=== PATIENT | female | born 1990 | race Caucasian/White ===

== ENCOUNTER 2016-08-18 12:36 | Emergency (ER) | payer OTHER ==
--- NOTE | 2016-08-18 13:36 | EDDOCDS ---
Nurse's Notes [facility] Name: Beverly Roque Age: 26 yrs Sex: Female : 1990 Arrival Date: 08/18/2016 Time: 12:36 Bed Triage 2 Private MD: Efren Strange W Diagnosis: Acute nasopharyngitis [common cold] Presentation: 08/18 12:40 Presenting complaint: Patient states: Runny Nose, nasal congestion, headache, abdominal ck1 pain, sore throat since this morning. Adult Sepsis Screening: The patient does not have new or worsening altered mentation. Patient's respiratory rate is less than 22. Systolic blood pressure is greater than 100. Patient has a qSOFA score of 0- Negative Sepsis Screen. Suicide/Homicide risk assessment- the patient denies having any suicidal and/or homicidal ideations and does not present with any other emotional, behavioral or mental health complaints. 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 Transition of care: patient was not received from another setting of care. 12:40 Acuity: JOSE Level 4 ck1 12:40 Method Of Arrival: Walkin/Carried/Asstd ck1 Triage Assessment: 12:41 General: Appears in no apparent distress, comfortable, Behavior is appropriate for age, ck1 cooperative. Pain: Location: generalized Pain currently is 5 out of 10 on a pain scale. HIV screening NA for this visit Offered previously. Neurological: No deficits noted. Respiratory: Respiratory effort is even, unlabored, Respiratory pattern is regular, symmetrical. GI: No deficits noted. Derm: Skin is pink, warm & dry. 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 none - PMHx: none; - PSHx: none; - Social history: Smoking status: Patient uses tobacco products, heavy tobacco smoker. No barriers to communication noted, The patient speaks fluent Malian, Speaks appropriately for age. - Family history: Not pertinent. - : The pt / caregiver states he / she is not on anticoagulants. Home medication list is obtained from the patient. - Exposure Risk Screening:: None identified. Screenin:34 Screening information is obtained from the patient. Fall risk: No risks identified. mlb1 Assistance ADL's: requires no assistance with activities of daily living. Abuse/DV Screen: The patient / caregiver reports he/she is: not in a situation that causes fear, pain or injury. Nutritional screening: No deficits noted. Advance Directives: Currently, there is no health care proxy. home support is adequate. Assessment: 13:33 General: Appears in no apparent distress, comfortable, Behavior is appropriate for age, mlb1 cooperative. Pain: Denies pain. EENT: Reports nasal congestion. Derm: No deficits noted. Vital Signs: 12:39 BP 120 / 66; Pulse 73; Resp 16; Temp 96.7; Pulse Ox 100% ; Weight 63.5 kg; Height 5 ft. elp 6 in. (167.64 cm); Pain 5/10; 12:39 Body Mass Index 22.60 (63.50 kg, 167.64 cm) elp Vitals: 12:39 Log In Time: August 18, 2016 at 12:36. elp ED Course: 12:38 Patient visited by Cas Boggs RN. mlb1 12:38 Efren Strange is Private Physician. mlb1 12:38 Patient moved to Waiting mlb1 12:39 Patient visited by Marissa Almaguer PCA. elp 12:39 Patient moved to Pre RCE elp 12:41 Triage Initiated ck1 12:58 Patient moved to Triage 2 mlb1 13:17 [facility] cc[facility] 13:17 Patric Barnett MD is Attending Physician. cc10 13:26 Patient visited by Juarez Qureshi PA-C. cc10 13:26 Patient visited by Juarez Qureshi PA-C. cc10 13:29 Efren Strange is Referral Physician. cc10 13:34 No IV's were initiated during this patient's visit. No procedures done that require mlb1 assistance. 13:35 The patient / caregiver is instructed regarding the plan of care and ED course. mlb1 Order Results: There are currently no results for this order. Outcome: 13:30 Discharge ordered by Provider. cc10 13:34 Discharge Assessment: Patient awake, alert and oriented x 3. No cognitive and/or mlb1 functional deficits noted. Patient verbalized understanding of disposition instructions. patient administered narcotics - no. The following High Risk Discharge criteria are identified: None. Discharged to home ambulatory. Condition: good. Discharge instructions given to patient, Instructed on discharge instructions, follow up and referral plans. medication usage, Demonstrated understanding of instructions, medications, Pt was receptive of discharge instructions/ teaching. Prescriptions given X 2. No special radiology studies were completed. Property sent home with patient. 13:35 Patient left the ED. mlb1 Signatures: Cas Boggs RN RN mlb1 Mel NorrisRN RN ck1 Marissa Almaguer, ALEXIS REAL ESTATE LOAN OFFICER jayrop Juarez Qureshi, PA-C PA-C cc10 MTDD
--- NOTE | 2016-08-18 13:36 | EDDOCDS ---
Physician Documentation [facility] Name: Beverly Roque Age: 26 yrs Sex: Female : 1990 Arrival Date: 08/18/2016 Time: 12:36 Bed Triage 2 Private MD: Efren Strange W Disposition: 08/18/16 13:30 Discharged to Home/Self Care. Impression: Acute nasopharyngitis [common cold]. - Condition is Stable. - Discharge Instructions: Upper Respiratory Infection, Adult. - Prescriptions for Guaifenesin- DM 10-100 mg/5 mL Oral Liquid - take 5 milliliter by ORAL route every 4 hours As needed; 100 milliliter. benzonatate 200 mg Oral Capsule - take 1 capsule by ORAL route 3 times per day As needed; 30 capsule. - Medication Reconciliation, Work Release Form - 2 day, Local Pharmacy Hours form. - Follow up: Emergency Department; When: As needed. Follow up: Efren Strange; When: Call to arrange an appointment; Reason: Wound/Symptom Recheck, Recheck today's complaints, Worsening of conditions, Continuance of care. - Problem is new. - Symptoms are unchanged. Historical: - Allergies: No known drug Allergies; - Home Meds: 1. none - PMHx: none; - PSHx: none; - Social history: Smoking status: Patient uses tobacco products, heavy tobacco smoker. No barriers to communication noted, The patient speaks fluent Czech, Speaks appropriately for age. - Family history: Not pertinent. - : The pt / caregiver states he / she is not on anticoagulants. Home medication list is obtained from the patient. - Exposure Risk Screening:: None identified. 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 6 in. (167.64 cm); Pain 5/10; 12:39 Body Mass Index 22.60 (63.50 kg, 167.64 cm) elp Signatures: Cas Boggs RN RN mlb1 Mel Norris RN RN ck1 Juarez Qureshi PA-C PA-C cc10 MTDD
--- NOTE | 2016-08-20 14:36 | EDDOCDS ---
Nurse's Notes [facility] Name: Beverly Roque Age: 26 yrs Sex: Female : 1990 Arrival Date: 08/18/2016 Time: 12:36 Bed Triage 2 Private MD: Efren Strange W Diagnosis: Acute nasopharyngitis [common cold] Presentation: 08/18 12:40 Presenting complaint: Patient states: Runny Nose, nasal congestion, headache, abdominal ck1 pain, sore throat since this morning. Adult Sepsis Screening: The patient does not have new or worsening altered mentation. Patient's respiratory rate is less than 22. Systolic blood pressure is greater than 100. Patient has a qSOFA score of 0- Negative Sepsis Screen. Suicide/Homicide risk assessment- the patient denies having any suicidal and/or homicidal ideations and does not present with any other emotional, behavioral or mental health complaints. 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 Transition of care: patient was not received from another setting of care. 12:40 Acuity: JOSE Level 4 ck1 12:40 Method Of Arrival: Walkin/Carried/Asstd ck1 Triage Assessment: 12:41 General: Appears in no apparent distress, comfortable, Behavior is appropriate for age, ck1 cooperative. Pain: Location: generalized Pain currently is 5 out of 10 on a pain scale. HIV screening NA for this visit Offered previously. Neurological: No deficits noted. Respiratory: Respiratory effort is even, unlabored, Respiratory pattern is regular, symmetrical. GI: No deficits noted. Derm: Skin is pink, warm & dry. 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 none - PMHx: none; - PSHx: none; - Social history: Smoking status: Patient uses tobacco products, heavy tobacco smoker. No barriers to communication noted, The patient speaks fluent Austrian, Speaks appropriately for age. - Family history: Not pertinent. - : The pt / caregiver states he / she is not on anticoagulants. Home medication list is obtained from the patient. - Exposure Risk Screening:: None identified. Screenin:34 Screening information is obtained from the patient. Fall risk: No risks identified. mlb1 Assistance ADL's: requires no assistance with activities of daily living. Abuse/DV Screen: The patient / caregiver reports he/she is: not in a situation that causes fear, pain or injury. Nutritional screening: No deficits noted. Advance Directives: Currently, there is no health care proxy. home support is adequate. Assessment: 13:33 General: Appears in no apparent distress, comfortable, Behavior is appropriate for age, mlb1 cooperative. Pain: Denies pain. EENT: Reports nasal congestion. Derm: No deficits noted. 13:48 General: medicaid transportation called per patient request. [facility] Vital Signs: 12:39 BP 120 / 66; Pulse 73; Resp 16; Temp 96.7; Pulse Ox 100% ; Weight 63.5 kg; Height 5 ft. elp 6 in. (167.64 cm); Pain 5/10; 12:39 Body Mass Index 22.60 (63.50 kg, 167.64 cm) [facility] Vitals: 12:39 Log In Time: August 18, 2016 at 12:36. elp ED Course: 12:38 Patient visited by Cas Boggs RN. mlb1 12:38 Efren Strange is Private Physician. mlb1 12:38 Patient moved to Waiting mlb1 12:39 Patient visited by Marissa Almaguer PCA. elp 12:39 Patient moved to Pre RCE elp 12:41 Triage Initiated ck1 12:58 Patient moved to Triage 2 mlb1 13:17 Juarez Qureshi [facility]C [facility] cc[facility] 13:17 Patric Barnett MD is Attending Physician. cc10 13:26 Patient visited by Juarez Qureshi PA-C. cc10 13:26 Patient visited by Juarez Qureshi PA-C. cc10 13:29 Efren Strange is Referral Physician. cc10 13:34 No IV's were initiated during this patient's visit. No procedures done that require mlb1 assistance. 13:35 The patient / caregiver is instructed regarding the plan of care and ED course. mlb1 15:18 T-Sheet-- Draft Copy was scanned into [employer] and attached to record. gb 15:36 Patient name changed from Beverly\S\Taylor\S\Roque\S\ to Beverly\S\M\S\Roque. EDMS 15:36 [facility] Payment Agreement was scanned into [employer] and attached to record. lg Order Results: There are currently no results for this order. Outcome: 13:30 Discharge ordered by Provider. cc10 13:34 Discharge Assessment: Patient awake, alert and oriented x 3. No cognitive and/or mlb1 functional deficits noted. Patient verbalized understanding of disposition instructions. patient administered narcotics - no. The following High Risk Discharge criteria are identified: None. Discharged to home ambulatory. Condition: good. Discharge instructions given to patient, Instructed on discharge instructions, follow up and referral plans. medication usage, Demonstrated understanding of instructions, medications, Pt was receptive of discharge instructions/ teaching. Prescriptions given X 2. No special radiology studies were completed. Property sent home with patient. 13:35 Patient left the ED. mlb1 Signatures: Dispatcher [employer] EDMS Cat Mcclellan, Reg Reg gb Marek Cagle, Reg Reg lg Ambrose, Cas Fall RN RN mlb1 Mel NorrisRN RN ck1 Nurys Andrews,RN RN [facility] Marissa Almaguer, ALEXIS BINITROTOLUENE OPERATOR Juarez Lomas, PA-C PA-C cc10 Chart Complete MTDD
--- NOTE | 2016-08-20 14:36 | EDDOCDS ---
Physician Documentation [facility] Name: Beverly Roque Age: 26 yrs Sex: Female : 1990 Arrival Date: 08/18/2016 Time: 12:36 Bed Triage 2 Private MD: Efren Strange W Disposition: 08/18/16 13:30 Discharged to Home/Self Care. Impression: Acute nasopharyngitis [common cold]. - Condition is Stable. - Discharge Instructions: Upper Respiratory Infection, Adult. - Prescriptions for Guaifenesin- DM 10-100 mg/5 mL Oral Liquid - take 5 milliliter by ORAL route every 4 hours As needed; 100 milliliter. benzonatate 200 mg Oral Capsule - take 1 capsule by ORAL route 3 times per day As needed; 30 capsule. - Medication Reconciliation, Work Release Form - 2 day, Local Pharmacy Hours form. - Follow up: Emergency Department; When: As needed. Follow up: Efren Strange; When: Call to arrange an appointment; Reason: Wound/Symptom Recheck, Recheck today's complaints, Worsening of conditions, Continuance of care. - Problem is new. - Symptoms are unchanged. Historical: - Allergies: No known drug Allergies; - Home Meds: 1. none - PMHx: none; - PSHx: none; - Social history: Smoking status: Patient uses tobacco products, heavy tobacco smoker. No barriers to communication noted, The patient speaks fluent Sami, Speaks appropriately for age. - Family history: Not pertinent. - : The pt / caregiver states he / she is not on anticoagulants. Home medication list is obtained from the patient. - Exposure Risk Screening:: None identified. 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 6 in. (167.64 cm); Pain 5/10; 12:39 Body Mass Index 22.60 (63.50 kg, 167.64 cm) elp MDM: 15:18 T-Sheet-- Draft Copy was scanned into [employer] and attached to record. gb 15:36 [facility] [place] was scanned into [employer] and attached to record. lg Signatures: Cat Mcclellan, Reg Reg gb Marek Cagle, Reg Reg lg Cas Boggs RN RN mlb1 Mel NorrisRN RN ck1 Juarez Qureshi, PAHomeroC PAHomeroC cc10 The chart was reviewed and I authenticate all verbal orders and agree with the evaluation and treatment provided.Attachments: 15:18 T-Sheet-- Draft Copy gb 15:36 [facility] [place] lg Chart Complete MTDD
--- NOTE | 2016-08-20 14:36 | EDDOCDS ---
Physician Documentation [facility] Name: Beverly Roque Age: 26 yrs Sex: Female : 1990 Arrival Date: 08/18/2016 Time: 12:36 Bed Triage 2 Private MD: Efren Strange W Disposition: 08/18/16 13:30 Discharged to Home/Self Care. Impression: Acute nasopharyngitis [common cold]. - Condition is Stable. - Discharge Instructions: Upper Respiratory Infection, Adult. - Prescriptions for Guaifenesin- DM 10-100 mg/5 mL Oral Liquid - take 5 milliliter by ORAL route every 4 hours As needed; 100 milliliter. benzonatate 200 mg Oral Capsule - take 1 capsule by ORAL route 3 times per day As needed; 30 capsule. - Medication Reconciliation, Work Release Form - 2 day, Local Pharmacy Hours form. - Follow up: Emergency Department; When: As needed. Follow up: Efren Strange; When: Call to arrange an appointment; Reason: Wound/Symptom Recheck, Recheck today's complaints, Worsening of conditions, Continuance of care. - Problem is new. - Symptoms are unchanged. Historical: - Allergies: No known drug Allergies; - Home Meds: 1. none - PMHx: none; - PSHx: none; - Social history: Smoking status: Patient uses tobacco products, heavy tobacco smoker. No barriers to communication noted, The patient speaks fluent Khmer, Speaks appropriately for age. - Family history: Not pertinent. - : The pt / caregiver states he / she is not on anticoagulants. Home medication list is obtained from the patient. - Exposure Risk Screening:: None identified. 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 6 in. (167.64 cm); Pain 5/10; 12:39 Body Mass Index 22.60 (63.50 kg, 167.64 cm) elp MDM: 15:18 T-Sheet-- Draft Copy was scanned into [employer] and attached to record. gb 15:36 [facility] [place] was scanned into [employer] and attached to record. lg Signatures: Cat cMclellan, Reg Reg gb Marek Cagle, Reg Reg lg Cas Boggs RN RN mlb1 Mel NorrisRN RN ck1 Juarez Qureshi, PAHomeroC PAHomeroC cc10 The chart was reviewed and I authenticate all verbal orders and agree with the evaluation and treatment provided.Attachments: 15:18 T-Sheet-- Draft Copy gb 15:36 [facility] [place] Agreement lg Chart Complete MTDD
== END 2016-08-18 13:35 | disposition home or self-care (01) ==
LOC: M ED 12:36
DX: J00 Acute nasopharyngitis [common cold] (principal); F17.210 Nicotine dependence, cigarettes, uncomplicated

== ENCOUNTER 2016-08-25 18:16 | Emergency (ER) | payer OTHER ==
[2016-08-25] MEDS ORDERED: ACETAMINOPHEN 325 MG TAB As Ordered ONE (20:42)
[2016-08-25] MEDS ORDERED: IBUPROFEN 600 MG TAB As Ordered ONE (20:42)
[2016-08-25 21:21] LABS: BASO # 0.1 K/mm3 (0.0-0.2); BASO % 0.9 % (0.0-1.0); EOS # 0.1 K/mm3 (0.0-0.50); LARGE UNSTAINED CELL # 0.2 K/mm3 (0.0-0.4); LARGE UNSTAINED CELL % 1.4 % (0.0-4.0); LYMPH # 1.5 K/mm3 (1.5-6.5); LYMPH % 9.5 % (24.0-44.0); MEAN CORPUSCULAR HEMOGLOBIN 28.2 pg (27.0-33.0); MEAN CORPUSCULAR HGB CONC 33.9 g/dl (32.0-36.5); MEAN CORPUSCULAR VOLUME 83.2 fl (80.0-96.0); MONO # 0.7 K/mm3 (0.0-0.8); MONO % 4.8 % (0.0-5.0); NEUTROPHILS # 11.3 K/mm3 (1.8-7.7); NEUTROPHILS % 82.4 % (36.0-66.0); PLATELET COUNT, AUTOMATED 214 k/mm3 (150-450); RED CELL DISTRIBUTION WIDTH 12.4 % (11.5-14.5); WHITE BLOOD COUNT 13.8 K/mm3 (4.0-10.0)
[2016-08-25 21:31] LABS: ANION GAP 10 MEQ/L (8-16); BLOOD UREA NITROGEN 13 MG/DL (7-18); CARBON DIOXIDE LEVEL 24 MEQ/L (21-32); CHLORIDE LEVEL 105 MEQ/L (98-107); CREATININE FOR GFR 0.93 MG/DL (0.55-1.02); GLOMERULAR FILTRATION RATE > 60.0 (>60); GLUCOSE, FASTING 91 MG/DL (70-105); POTASSIUM SERUM 3.4 MEQ/L (3.5-5.1); SODIUM LEVEL 139 MEQ/L (136-145)
[2016-08-25] MEDS ORDERED: AZITHROMYCIN 250 MG TAB As Ordered ONE (22:00)
--- NOTE | 2016-08-25 22:55 | EDDOCDS ---
Nurse's Notes [facility] Name: Beverly Roque Age: 26 yrs Sex: Female : 1990 Arrival Date: 08/25/2016 Time: 18:16 Bed PR Private MD: Efren Strange W Diagnosis: Pneumonia, unspecified organism Presentation: 08/25 18:22 Presenting complaint: Patient states: Chest pain with inspiration, cough and headache mlb1 began 10 days ago. Adult Sepsis Screening: The patient does not have new or worsening altered mentation. Patient's respiratory rate is less than 22. Systolic blood pressure is greater than 100. Patient has a qSOFA score of 0- Negative Sepsis Screen. Suicide/Homicide risk assessment- the patient denies having any suicidal and/or homicidal ideations and does not present with any other emotional, behavioral or mental health complaints. Status: Patient is not a account services analyst or dependent. Transition of care: patient was not received from another setting of care. 18:22 Acuity: JOSE Level 4 mlb1 18:22 Method Of Arrival: Walkin/Carried/Asstd mlb1 Triage Assessment: 18:24 General: Appears in no apparent distress, Behavior is appropriate for age, cooperative. mlb1 Pain: Location: chest Pain currently is 4 out of 10 on a pain scale. HIV screening NA for this visit Offered previously. Respiratory: Reports cough that is productive. 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 none - PMHx: none; - PSHx: none; - Social history: Smoking status: Patient uses tobacco products, light tobacco smoker. No barriers to communication noted, The patient speaks fluent Armenian, Speaks appropriately for age. - Family history: Not pertinent. - : The pt / caregiver states he / she is not on anticoagulants. Home medication list is obtained from the patient. - Exposure Risk Screening:: None identified. Screenin:44 Screening information is obtained from the patient. Fall risk: No risks identified. ttb Assistance ADL's: requires no assistance with activities of daily living. Abuse/DV Screen: The patient / caregiver reports he/she is: not in a situation that causes fear, pain or injury. Nutritional screening: No deficits noted. Advance Directives: Currently, there is no health care proxy. home support is adequate. Assessment: 20:44 General: Appears in no apparent distress, uncomfortable, well nourished, well groomed, ttb Behavior is appropriate for age, cooperative, flat, pleasant. Neurological: Level of Consciousness is awake, alert. Cardiovascular: Chest pain is denied. Respiratory: Airway is patent Respiratory effort is even, unlabored, Respiratory pattern is regular, symmetrical, Reports cough that is non-productive, Denies labored breathing. GI: Denies nausea, vomiting. Derm: Skin is normal. Injury Description: No known injury. 21:06 General: bloods drawn and meds given per orders. Pt awaiting xray. ttb 22:03 Reassessment: Patient appears in no apparent distress at this time. Patient states ttb feeling better. Patient states symptoms have improved. pain improved after meds given. Temp remains increased. PA aware.. 22:52 Reassessment: Patient appears in no apparent distress at this time. Patient states ttb feeling better. Patient states symptoms have improved. pt states she is comfortable going home. . Neurological: Level of Consciousness is awake, alert. Respiratory: Airway is patent Respiratory effort is even, unlabored, Respiratory pattern is regular, symmetrical. 22:54 General: medicaid cab requested and confirmed. . ttb Vital Signs: 18:17 BP 115 / 62; Pulse 103; Resp 18; Temp 101.0; Pulse Ox 98% on R/A; Weight 68.04 kg; elp Height 5 ft. 6 in. (167.64 cm); Pain 8/10; 22:04 BP 101 / 56; Pulse 100; Resp 18; Temp 101.5; Pulse Ox 96% on R/A; Pain 2/10; ttb 22:19 Temp 100.2(O); mdr 18:17 Body Mass Index 24.21 (68.04 kg, 167.64 cm) elp 22:04 pt wearing 2 jackets. ttb Vitals: 18:17 Log In Time: August 25, 2016 at 18:15. el ED Course: 18:17 Patient visited by Marissa Almaguer PCA. elp 18:17 Efren Strange is Private Physician. elp 18:17 Patient moved to Waiting elp 18:18 Patient visited by Marissa Almaguer PCA. elp 18:18 Patient moved to Pre RCE elp 18:22 Patient visited by Cas Boggs, RADHA. mlb1 18:24 Triage Initiated mlb1 18:25 Patient visited by Cas Boggs RN. mlb1 20:00 Patient moved to Triage 1 ttb 20:39 Gustavo Ward RPA-C is PHCP. ck7 20:39 Patric Barnett MD is Attending Physician. ck7 20:39 Patient visited by Gustavo Ward RPA-C. ck7 20:44 The patient / caregiver is instructed regarding the plan of care and ED course. Patient ttb has correct armband on for positive identification. 20:45 Patient visited by Chantell Finley RN. ttb 21:06 [facility] Payment Agreement was scanned into [employer] and attached to record. gjb 21:07 Patient moved to PR1 / 25 ttb 21:24 Patient moved to Radiology sai 21:28 BLOOD CULTURES Sent. mdr 21:32 Patient moved to PR1 / 25 sai 21:47 Patient visited by Gustavo Ward RPA-C. ck7 22:19 Patient visited by Renny Murphy PCA. mdr 22:42 Efren Strange is Referral Physician. ck7 22:52 No IV's were initiated during this patient's visit. No procedures done that require ttb assistance. Labs drawn. (by ED staff). Labs/Blood culture drawn. Administered Medications: 20:44 Drug: Ibuprofen 600 mg [ibuprofen 600 mg tablet (1 tabs)] Route: PO; ttb 20:44 Drug: Acetaminophen 975 mg [acetaminophen 325 mg tablet (3 tabs)] Route: PO; ttb 22:03 Drug: azithromycin 500 mg [azithromycin 250 mg tablet (2 tabs)] Route: PO; ttb Order Results: Lab Order: -Influenza A&B Rapid Antigen - Nose; SPEC'M 08/25/16 20:55 Test: INFLUENZA A RAPID SCR by ICA; Value: INFLUENZA A RESULTS NEGATIVE; Status: F Test: INFLUENZA A RAPID SCR by ICA; Value: Comments:; Status: F Test: INFLUENZA B RAPID SCR by ICA; Value: INFLUENZA B RESULTS NEGATIVE; Status: F Test Note: ; The Influenza test is a direct rapid immunoassay for the qualitative detection of Influenza viral antigen. Cell culture (Viral Culture) testing should be considered to confirm NEGATIVE results and to assist in detecting other viruses that can provide similar clinical symptoms. Please contact the lab within 24 hours ([phone]) if confirmatory testing is desired. Lab Order: CBC with Diff; SPEC'M 08/25/16 20:55 Test: WHITE BLOOD COUNT; Value: 13.8; Range: 4.0-10.0; Abnormal: Above high normal; Units: K/mm3; Status: F Test: RED BLOOD COUNT; Value: 5.03; Range: 4.00-5.40; Units: M/mm3; Status: F Test: HEMOGLOBIN; Value: 14.2; Range: 12.0-16.0; Units: g/dl; Status: F Test: HEMATOCRIT; Value: 41.9; Range: 36.0-47.0; Units: %; Status: F Test: MEAN CORPUSCULAR VOLUME; Value: 83.2; Range: 80.0-96.0; Units: fl; Status: F Test: MEAN CORPUSCULAR HEMOGLOBIN; Value: 28.2; Range: 27.0-33.0; Units: pg; Status: F Test: MEAN CORPUSCULAR HGB CONC; Value: 33.9; Range: 32.0-36.5; Units: g/dl; Status: F Test: RED CELL DISTRIBUTION WIDTH; Value: 12.4; Range: 11.5-14.5; Units: %; Status: F Test: PLATELET COUNT, AUTOMATED; Value: 214; Range: 150-450; Units: k/mm3; Status: F Test: NEUTROPHILS %; Value: 82.4; Range: 36.0-66.0; Abnormal: Above high normal; Units: %; Status: F Test: LYMPH %; Value: 9.5; Range: 24.0-44.0; Abnormal: Below low normal; Units: %; Status: F Test: MONO %; Value: 4.8; Range: 0.0-5.0; Units: %; Status: F Test: EOS %; Value: 1.0; Range: 0.0-3.0; Units: %; Status: F Test: BASO %; Value: 0.9; Range: 0.0-1.0; Units: %; Status: F Test: LARGE UNSTAINED CELL %; Value: 1.4; Range: 0.0-4.0; Units: %; Status: F Test: NEUTROPHILS #; Value: 11.3; Range: 1.8-7.7; Abnormal: Above high normal; Units: K/mm3; Status: F Test: LYMPH #; Value: 1.5; Range: 1.5-6.5; Units: K/mm3; Status: F Test: MONO #; Value: 0.7; Range: 0.0-0.8; Units: K/mm3; Status: F Test: EOS #; Value: 0.1; Range: 0.0-0.50; Units: K/mm3; Status: F Test: BASO #; Value: 0.1; Range: 0.0-0.2; Units: K/mm3; Status: F Test: LARGE UNSTAINED CELL #; Value: 0.2; Range: 0.0-0.4; Units: K/mm3; Status: F Lab Order: MED Profile; SPEC'M 08/25/16 20:55 Test: GLUCOSE, FASTING; Value: 91; Range: 70-105; Units: MG/DL; Status: F Test: BLOOD UREA NITROGEN; Value: 13; Range: 7-18; Units: MG/DL; Status: F Test: CREATININE FOR GFR; Value: 0.93; Range: 0.55-1.02; Units: MG/DL; Status: F Test: GLOMERULAR FILTRATION RATE; Value: > 60.0; Range: >60; Status: F Test: SODIUM LEVEL; Value: 139; Range: 136-145; Units: MEQ/L; Status: F Test: POTASSIUM SERUM; Value: 3.4; Range: 3.5-5.1; Abnormal: Below low normal; Units: MEQ/L; Status: F Test: CHLORIDE LEVEL; Value: 105; Range: 98-107; Units: MEQ/L; Status: F Test: CARBON DIOXIDE LEVEL; Value: 24; Range: 21-32; Units: MEQ/L; Status: F Test: ANION GAP; Value: 10; Range: 8-16; Units: MEQ/L; Status: F Test: CALCIUM LEVEL; Value: 9.0; Range: 8.5-10.1; Units: MG/DL; Status: F Test Note: ; Units are mL/min/1.73 m2 Chronic Kidney Disease Staging per NKF: Stage I & II GFR >=60 Normal to Mildly Decreased Stage III GFR 30-59 Moderately Decreased Stage IV GFR 15-29 Severely Decreased Stage V GFR <15 Very Little GFR Left ESRD GFR <15 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 ck7 22:52 Discharge Assessment: Patient awake, alert and oriented x 3. No cognitive and/or ttb functional deficits noted. Patient verbalized understanding of disposition instructions. Patient awake and alert. patient administered narcotics - no. The following High Risk Discharge criteria are identified: None. Discharged to home ambulatory. Condition: good Condition: stable Condition: improved. Discharge instructions given to patient, Instructed on discharge instructions, follow up and referral plans. medication usage, Demonstrated understanding of instructions, medications, Pt was receptive of discharge instructions/ teaching. Prescriptions given X 2, Work note provided to patient. No special radiology studies were completed. Property :Personal belongings accompany Pt. 22:54 Patient left the ED. ttb Signatures: Robert Pemebrton Michael B, RN RN mlb1 Gustavo Ward, RPA-C RPA-Cck7 Chantell Finley RN RN ttb Marissa Almaguer, STRAIGHT RULING MACHINE OPERATOR STRAIGHT RULING MACHINE OPERATOR jayrop Renny Murphy, STRAIGHT RULING MACHINE OPERATOR STRAIGHT RULING MACHINE OPERATOR Palmira Morales Corrections: (The following items were deleted from the chart) 22:36 22:36 Temp 100.2F Oral; ttb ttb MTDNick
--- NOTE | 2016-08-25 22:55 | EDDOCDS ---
Physician Documentation [facility] Name: Beverly Roque Age: 26 yrs Sex: Female : 1990 Arrival Date: 08/25/2016 Time: 18:16 Bed PR Private MD: Efren Strange W Disposition: 08/25/16 22:42 Discharged to Home/Self Care. Impression: Pneumonia, unspecified organism. - Condition is Stable. - Discharge Instructions: Pneumonia, Adult. - Prescriptions for Zithromax 250 mg Oral Tablet - take 1 tablet by ORAL route once daily start tomorrow; 4 tablet. benzonatate 200 mg Oral Capsule - take 1 capsule by ORAL route 3 times per day As needed; 30 capsule. - Medication Reconciliation, Work Release Form - 3 day, Local Pharmacy Hours form. - Follow up: Efren Strange; When: 1 - 2 days; Reason: Recheck today's complaints, Continuance of care. - Problem is new. - Symptoms have improved. Historical: - Allergies: no known allergies; - Home Meds: 1. none - PMHx: none; - PSHx: none; - Social history: Smoking status: Patient uses tobacco products, light tobacco smoker. No barriers to communication noted, The patient speaks fluent Estonian, Speaks appropriately for age. - Family history: Not pertinent. - : The pt / caregiver states he / she is not on anticoagulants. Home medication list is obtained from the patient. - Exposure Risk Screening:: None identified. 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 6 in. (167.64 cm); Pain 8/10; 22:04 BP 101 / 56; Pulse 100; Resp 18; Temp 101.5; Pulse Ox 96% on R/A; Pain 2/10; ttb 22:19 Temp 100.2(O); mdr 18:17 Body Mass Index 24.21 (68.04 kg, 167.64 cm) elp 22:04 pt wearing 2 jackets. ttb MDM: 20:40 Ibuprofen 600 mg PO once ordered. ck7 20:40 Acetaminophen Tablet 975 mg PO once ordered. ck7 20:46 Obtain sample by nasopharyngeal swab ordered. ck7 20:46 -Blood Culture (Adults Only), peripheral from different site, or from device/port/PICC ck7 etc. if present ordered. 20:47 Chest, 2 View (pa\E\lat) Ordered. EDMS 20:47 -Influenza A&B Rapid Antigen - Nose Ordered. EDMS 20:47 CBC with Diff Ordered. EDMS 20:47 MED Profile Ordered. EDMS 20:47 -Blood Culture Ordered. EDMS 20:48 -Blood Culture (Adults Only), peripheral from different site, or from device/port/PICC ml3 etc. if present complete. 20:50 BLOOD CULTURES Ordered. EDMS 21:04 Financial registration complete. gjb 21:06 [facility] Payment Agreement was scanned into [employer]Simply and attached to record. gjb 21:50 CBC with Diff Reviewed. ck7 21:50 MED Profile Reviewed. ck7 21:50 -Influenza A&B Rapid Antigen - Nose Reviewed. ck7 21:56 Recheck Vital Signs, perform reassessment and enter into [employer] ordered. ck7 21:56 azithromycin 500 mg PO once ordered. ck7 Administered Medications: 20:44 Drug: Ibuprofen 600 mg [ibuprofen 600 mg tablet (1 tabs)] Route: PO; ttb 20:44 Drug: Acetaminophen 975 mg [acetaminophen 325 mg tablet (3 tabs)] Route: PO; ttb 22:03 Drug: azithromycin 500 mg [azithromycin 250 mg tablet (2 tabs)] Route: PO; ttb Signatures: Dispatcher [employer] Cas Ventura RN RN mlb1 Ana Lilia Wilde, Bulb Planter Unit ml3 Gustavo Ward, RPA-C RPA-Cck7 Chantell Finley RN RN ttb Beck, Gabriela gjb The chart was reviewed and I authenticate all verbal orders and agree with the evaluation and treatment provided.Attachments: 21:06 [facility] Payment Agreement gjb MTDD
--- NOTE | 2016-08-25 23:47 | REP ---
Clinical: Cough. Technique: PA and lateral. Comparison: None. Findings: Right middle lobe and right lower lobe atelectasis/infiltrate is suggested. No definite effusion. No pneumothorax. Mediastinum and cardiac silhouette are normal. Impression: Right middle lobe/right lower lobe infiltrates. Signed by Julián Hannah MD 08/25/2016 11:40 P
--- NOTE | 2016-08-27 23:55 | EDDOCDS ---
Physician Documentation [facility] Name: Beverly Roque Age: 26 yrs Sex: Female : 1990 Arrival Date: 08/25/2016 Time: 18:16 Bed PR Private MD: Efren Strange W Disposition: 08/25/16 22:42 Discharged to Home/Self Care. Impression: Pneumonia, unspecified organism. - Condition is Stable. - Discharge Instructions: Pneumonia, Adult. - Prescriptions for Zithromax 250 mg Oral Tablet - take 1 tablet by ORAL route once daily start tomorrow; 4 tablet. benzonatate 200 mg Oral Capsule - take 1 capsule by ORAL route 3 times per day As needed; 30 capsule. - Medication Reconciliation, Work Release Form - 3 day, Local Pharmacy Hours form. - Follow up: Efren Strange; When: 1 - 2 days; Reason: Recheck today's complaints, Continuance of care. - Problem is new. - Symptoms have improved. Historical: - Allergies: no known allergies; - Home Meds: 1. none - PMHx: none; - PSHx: none; - Social history: Smoking status: Patient uses tobacco products, light tobacco smoker. No barriers to communication noted, The patient speaks fluent Urdu, Speaks appropriately for age. - Family history: Not pertinent. - : The pt / caregiver states he / she is not on anticoagulants. Home medication list is obtained from the patient. - Exposure Risk Screening:: None identified. 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 6 in. (167.64 cm); Pain 8/10; 22:04 BP 101 / 56; Pulse 100; Resp 18; Temp 101.5; Pulse Ox 96% on R/A; Pain 2/10; ttb 22:19 Temp 100.2(O); mdr 18:17 Body Mass Index 24.21 (68.04 kg, 167.64 cm) elp 22:04 pt wearing 2 jackets. ttb MDM: 20:40 Ibuprofen 600 mg PO once ordered. ck7 20:40 Acetaminophen Tablet 975 mg PO once ordered. ck7 20:46 Obtain sample by nasopharyngeal swab ordered. ck7 20:46 -Blood Culture (Adults Only), peripheral from different site, or from device/port/PICC ck7 etc. if present ordered. 20:47 Chest, 2 View (pa\E\lat) Ordered. EDMS 20:47 -Influenza A&B Rapid Antigen - Nose Ordered. EDMS 20:47 CBC with Diff Ordered. EDMS 20:47 MED Profile Ordered. EDMS 20:47 -Blood Culture Ordered. EDMS 20:48 -Blood Culture (Adults Only), peripheral from different site, or from device/port/PICC ml3 etc. if present complete. 20:50 BLOOD CULTURES Ordered. EDMS 21:04 Financial registration complete. gjb 21:06 [facility] Payment Agreement was scanned into [employer]ingCheckout and attached to record. gjb 21:50 CBC with Diff Reviewed. ck7 21:50 MED Profile Reviewed. ck7 21:50 -Influenza A&B Rapid Antigen - Nose Reviewed. ck7 21:56 Recheck Vital Signs, perform reassessment and enter into [employer] ordered. ck7 21:56 azithromycin 500 mg PO once ordered. ck7 08/26 12:58 T-Sheet-- Draft Copy was scanned into [employer]ingCheckout and attached to record. gb Administered Medications: 08/25 20:44 Drug: Ibuprofen 600 mg [ibuprofen 600 mg tablet (1 tabs)] Route: PO; ttb 20:44 Drug: Acetaminophen 975 mg [acetaminophen 325 mg tablet (3 tabs)] Route: PO; ttb 22:03 Drug: azithromycin 500 mg [azithromycin 250 mg tablet (2 tabs)] Route: PO; ttb Signatures: Dispatcher [employer] EDMD Cat Mcclellan, Reg Reg gb Cas Boggs RN RN mlb1 Ana Lilia Wilde, Research Administrator Unit ml3 Gustavo Ward RPA-C RPA-Cck7 Chantell Finley RN RN ttb Palmira Briseno The chart was reviewed and I authenticate all verbal orders and agree with the evaluation and treatment provided.Attachments: 21:06 [facility] Payment Agreement [facility] 08/26 12:58 T-Sheet-- Draft Copy gb Chart Complete MTDD
--- NOTE | 2016-08-27 23:55 | EDDOCDS ---
Nurse's Notes [facility] Name: Beverly Roque Age: 26 yrs Sex: Female : 1990 Arrival Date: 08/25/2016 Time: 18:16 Bed PR Private MD: Efren Strange W Diagnosis: Pneumonia, unspecified organism Presentation: 08/25 18:22 Presenting complaint: Patient states: Chest pain with inspiration, cough and headache mlb1 began 10 days ago. Adult Sepsis Screening: The patient does not have new or worsening altered mentation. Patient's respiratory rate is less than 22. Systolic blood pressure is greater than 100. Patient has a qSOFA score of 0- Negative Sepsis Screen. Suicide/Homicide risk assessment- the patient denies having any suicidal and/or homicidal ideations and does not present with any other emotional, behavioral or mental health complaints. Status: Patient is not a service liaison representative or dependent. Transition of care: patient was not received from another setting of care. 18:22 Acuity: JOSE Level 4 mlb1 18:22 Method Of Arrival: Walkin/Carried/Asstd mlb1 Triage Assessment: 18:24 General: Appears in no apparent distress, Behavior is appropriate for age, cooperative. mlb1 Pain: Location: chest Pain currently is 4 out of 10 on a pain scale. HIV screening NA for this visit Offered previously. Respiratory: Reports cough that is productive. 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 none - PMHx: none; - PSHx: none; - Social history: Smoking status: Patient uses tobacco products, light tobacco smoker. No barriers to communication noted, The patient speaks fluent Eritrean, Speaks appropriately for age. - Family history: Not pertinent. - : The pt / caregiver states he / she is not on anticoagulants. Home medication list is obtained from the patient. - Exposure Risk Screening:: None identified. Screenin:44 Screening information is obtained from the patient. Fall risk: No risks identified. ttb Assistance ADL's: requires no assistance with activities of daily living. Abuse/DV Screen: The patient / caregiver reports he/she is: not in a situation that causes fear, pain or injury. Nutritional screening: No deficits noted. Advance Directives: Currently, there is no health care proxy. home support is adequate. Assessment: 20:44 General: Appears in no apparent distress, uncomfortable, well nourished, well groomed, ttb Behavior is appropriate for age, cooperative, flat, pleasant. Neurological: Level of Consciousness is awake, alert. Cardiovascular: Chest pain is denied. Respiratory: Airway is patent Respiratory effort is even, unlabored, Respiratory pattern is regular, symmetrical, Reports cough that is non-productive, Denies labored breathing. GI: Denies nausea, vomiting. Derm: Skin is normal. Injury Description: No known injury. 21:06 General: bloods drawn and meds given per orders. Pt awaiting xray. ttb 22:03 Reassessment: Patient appears in no apparent distress at this time. Patient states ttb feeling better. Patient states symptoms have improved. pain improved after meds given. Temp remains increased. PA aware.. 22:52 Reassessment: Patient appears in no apparent distress at this time. Patient states ttb feeling better. Patient states symptoms have improved. pt states she is comfortable going home. . Neurological: Level of Consciousness is awake, alert. Respiratory: Airway is patent Respiratory effort is even, unlabored, Respiratory pattern is regular, symmetrical. 22:54 General: medicaid cab requested and confirmed. . ttb Vital Signs: 18:17 BP 115 / 62; Pulse 103; Resp 18; Temp 101.0; Pulse Ox 98% on R/A; Weight 68.04 kg; elp Height 5 ft. 6 in. (167.64 cm); Pain 8/10; 22:04 BP 101 / 56; Pulse 100; Resp 18; Temp 101.5; Pulse Ox 96% on R/A; Pain 2/10; ttb 22:19 Temp 100.2(O); mdr 18:17 Body Mass Index 24.21 (68.04 kg, 167.64 cm) elp 22:04 pt wearing 2 jackets. ttb Vitals: 18:17 Log In Time: August 25, 2016 at 18:15. el ED Course: 18:17 Patient visited by Marissa Almaguer PCA. elp 18:17 Efren Strange is Private Physician. elp 18:17 Patient moved to Waiting elp 18:18 Patient visited by Marissa Almaguer PCA. elp 18:18 Patient moved to Pre RCE elp 18:22 Patient visited by Cas Boggs, RN. mlb1 18:24 Triage Initiated mlb1 18:25 Patient visited by Cas Boggs, RADHA. mlb1 20:00 Patient moved to Triage 1 ttb 20:39 Gustavo Ward RPA-C is PHCP. ck7 20:39 Patric Barnett MD is Attending Physician. ck7 20:39 Patient visited by Gustavo Ward RPA-C. ck7 20:44 The patient / caregiver is instructed regarding the plan of care and ED course. Patient ttb has correct armband on for positive identification. 20:45 Patient visited by Chantell Finley RN. ttb 21:06 [facility] Payment Agreement was scanned into [employer] and attached to record. gjb 21:07 Patient moved to PR1 / 25 ttb 21:24 Patient moved to Radiology sai 21:28 BLOOD CULTURES Sent. mdr 21:32 Patient moved to PR1 / 25 sai 21:47 Patient visited by Gustavo Ward RPA-C. ck7 22:19 Patient visited by Renny Murphy PCA. mdr 22:42 Efren Strange is Referral Physician. ck7 22:52 No IV's were initiated during this patient's visit. No procedures done that require ttb assistance. Labs drawn. (by ED staff). Labs/Blood culture drawn. 08/26 00:18 Chest, 2 View (pa\E\lat) Returned. EDMS 12:58 T-Sheet-- Draft Copy was scanned into [employer] and attached to record. gb Administered Medications: 08/25 20:44 Drug: Ibuprofen 600 mg [ibuprofen 600 mg tablet (1 tabs)] Route: PO; ttb 20:44 Drug: Acetaminophen 975 mg [acetaminophen 325 mg tablet (3 tabs)] Route: PO; ttb 22:03 Drug: azithromycin 500 mg [azithromycin 250 mg tablet (2 tabs)] Route: PO; ttb Order Results: Lab Order: -Influenza A&B Rapid Antigen - Nose; SPEC'M 08/25/16 20:55 Test: INFLUENZA A RAPID SCR by ICA; Value: INFLUENZA A RESULTS NEGATIVE; Status: F Test: INFLUENZA A RAPID SCR by ICA; Value: Comments:; Status: F Test: INFLUENZA B RAPID SCR by ICA; Value: INFLUENZA B RESULTS NEGATIVE; Status: F Test Note: ; The Influenza test is a direct rapid immunoassay for the qualitative detection of Influenza viral antigen. Cell culture (Viral Culture) testing should be considered to confirm NEGATIVE results and to assist in detecting other viruses that can provide similar clinical symptoms. Please contact the lab within 24 hours ([phone]) if confirmatory testing is desired. Lab Order: CBC with Diff; SPEC'M 08/25/16 20:55 Test: WHITE BLOOD COUNT; Value: 13.8; Range: 4.0-10.0; Abnormal: Above high normal; Units: K/mm3; Status: F Test: RED BLOOD COUNT; Value: 5.03; Range: 4.00-5.40; Units: M/mm3; Status: F Test: HEMOGLOBIN; Value: 14.2; Range: 12.0-16.0; Units: g/dl; Status: F Test: HEMATOCRIT; Value: 41.9; Range: 36.0-47.0; Units: %; Status: F Test: MEAN CORPUSCULAR VOLUME; Value: 83.2; Range: 80.0-96.0; Units: fl; Status: F Test: MEAN CORPUSCULAR HEMOGLOBIN; Value: 28.2; Range: 27.0-33.0; Units: pg; Status: F Test: MEAN CORPUSCULAR HGB CONC; Value: 33.9; Range: 32.0-36.5; Units: g/dl; Status: F Test: RED CELL DISTRIBUTION WIDTH; Value: 12.4; Range: 11.5-14.5; Units: %; Status: F Test: PLATELET COUNT, AUTOMATED; Value: 214; Range: 150-450; Units: k/mm3; Status: F Test: NEUTROPHILS %; Value: 82.4; Range: 36.0-66.0; Abnormal: Above high normal; Units: %; Status: F Test: LYMPH %; Value: 9.5; Range: 24.0-44.0; Abnormal: Below low normal; Units: %; Status: F Test: MONO %; Value: 4.8; Range: 0.0-5.0; Units: %; Status: F Test: EOS %; Value: 1.0; Range: 0.0-3.0; Units: %; Status: F Test: BASO %; Value: 0.9; Range: 0.0-1.0; Units: %; Status: F Test: LARGE UNSTAINED CELL %; Value: 1.4; Range: 0.0-4.0; Units: %; Status: F Test: NEUTROPHILS #; Value: 11.3; Range: 1.8-7.7; Abnormal: Above high normal; Units: K/mm3; Status: F Test: LYMPH #; Value: 1.5; Range: 1.5-6.5; Units: K/mm3; Status: F Test: MONO #; Value: 0.7; Range: 0.0-0.8; Units: K/mm3; Status: F Test: EOS #; Value: 0.1; Range: 0.0-0.50; Units: K/mm3; Status: F Test: BASO #; Value: 0.1; Range: 0.0-0.2; Units: K/mm3; Status: F Test: LARGE UNSTAINED CELL #; Value: 0.2; Range: 0.0-0.4; Units: K/mm3; Status: F Lab Order: MED Profile; SPEC'M 08/25/16 20:55 Test: GLUCOSE, FASTING; Value: 91; Range: 70-105; Units: MG/DL; Status: F Test: BLOOD UREA NITROGEN; Value: 13; Range: 7-18; Units: MG/DL; Status: F Test: CREATININE FOR GFR; Value: 0.93; Range: 0.55-1.02; Units: MG/DL; Status: F Test: GLOMERULAR FILTRATION RATE; Value: > 60.0; Range: >60; Status: F Test: SODIUM LEVEL; Value: 139; Range: 136-145; Units: MEQ/L; Status: F Test: POTASSIUM SERUM; Value: 3.4; Range: 3.5-5.1; Abnormal: Below low normal; Units: MEQ/L; Status: F Test: CHLORIDE LEVEL; Value: 105; Range: 98-107; Units: MEQ/L; Status: F Test: CARBON DIOXIDE LEVEL; Value: 24; Range: 21-32; Units: MEQ/L; Status: F Test: ANION GAP; Value: 10; Range: 8-16; Units: MEQ/L; Status: F Test: CALCIUM LEVEL; Value: 9.0; Range: 8.5-10.1; Units: MG/DL; Status: F Test Note: ; Units are mL/min/1.73 m2 Chronic Kidney Disease Staging per NKF: Stage I & II GFR >=60 Normal to Mildly Decreased Stage III GFR 30-59 Moderately Decreased Stage IV GFR 15-29 Severely Decreased Stage V GFR <15 Very Little GFR Left ESRD GFR <15 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 All specimens observed; Status: F Test: BLOOD CULTURE; Value: for 5 days. Results final at that time.; Status: F Test: BLOOD CULTURE; Value: No Growth after 48 hours. All Specimens observed; Status: F Test: BLOOD CULTURE; Value: for 7 days. Results final at that time.; Status: F Radiology Order: Chest, 2 View (pa\E\lat) Test: Chest, 2 View (pa\E\lat) REASON FOR EXAMINATION: Cough; Clinical: Cough.; ; Technique: PA and lateral.; ; Comparison: None.; ; Findings:; Right middle lobe and right lower lobe atelectasis/infiltrate is suggested. No; definite effusion. No pneumothorax. Mediastinum and cardiac silhouette are; normal.; ; Impression:; Right middle lobe/right lower lobe infiltrates.; ; ; Signed by; Julián Hannah MD 08/25/2016 11:40 P; Outcome: 22:42 Discharge ordered by Provider. ck7 22:52 Discharge Assessment: Patient awake, alert and oriented x 3. No cognitive and/or ttb functional deficits noted. Patient verbalized understanding of disposition instructions. Patient awake and alert. patient administered narcotics - no. The following High Risk Discharge criteria are identified: None. Discharged to home ambulatory. Condition: good Condition: stable Condition: improved. Discharge instructions given to patient, Instructed on discharge instructions, follow up and referral plans. medication usage, Demonstrated understanding of instructions, medications, Pt was receptive of discharge instructions/ teaching. Prescriptions given X 2, Work note provided to patient. No special radiology studies were completed. Property :Personal belongings accompany Pt. 22:54 Patient left the ED. ttb Signatures: Dispatcher [employer] EDMS PembertonRobert Gloria, Reg Reg gb Cas Boggs RN RN mlb1 Gustavo Ward, RPA-C RPA-Cck7 Chantell Finley RN RN ttb Marissa Almaguer, SOAP CHIPPER SOAP CHIPPER elRenny Mcmillan, SOAP CHIPPER SOAP CHIPPER Palmira Morales Corrections: (The following items were deleted from the chart) 22:36 22:36 Temp 100.2F Oral; ttb ttb Chart Complete MTDD
--- NOTE | 2016-08-27 23:55 | EDDOCDS ---
Physician Documentation [facility] Name: Beverly Roque Age: 26 yrs Sex: Female : 1990 Arrival Date: 08/25/2016 Time: 18:16 Bed PR Private MD: Efren Strange W Disposition: 08/25/16 22:42 Discharged to Home/Self Care. Impression: Pneumonia, unspecified organism. - Condition is Stable. - Discharge Instructions: Pneumonia, Adult. - Prescriptions for Zithromax 250 mg Oral Tablet - take 1 tablet by ORAL route once daily start tomorrow; 4 tablet. benzonatate 200 mg Oral Capsule - take 1 capsule by ORAL route 3 times per day As needed; 30 capsule. - Medication Reconciliation, Work Release Form - 3 day, Local Pharmacy Hours form. - Follow up: Efren Strange; When: 1 - 2 days; Reason: Recheck today's complaints, Continuance of care. - Problem is new. - Symptoms have improved. Historical: - Allergies: no known allergies; - Home Meds: 1. none - PMHx: none; - PSHx: none; - Social history: Smoking status: Patient uses tobacco products, light tobacco smoker. No barriers to communication noted, The patient speaks fluent Belarusian, Speaks appropriately for age. - Family history: Not pertinent. - : The pt / caregiver states he / she is not on anticoagulants. Home medication list is obtained from the patient. - Exposure Risk Screening:: None identified. 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 6 in. (167.64 cm); Pain 8/10; 22:04 BP 101 / 56; Pulse 100; Resp 18; Temp 101.5; Pulse Ox 96% on R/A; Pain 2/10; ttb 22:19 Temp 100.2(O); mdr 18:17 Body Mass Index 24.21 (68.04 kg, 167.64 cm) elp 22:04 pt wearing 2 jackets. ttb MDM: 20:40 Ibuprofen 600 mg PO once ordered. ck7 20:40 Acetaminophen Tablet 975 mg PO once ordered. ck7 20:46 Obtain sample by nasopharyngeal swab ordered. ck7 20:46 -Blood Culture (Adults Only), peripheral from different site, or from device/port/PICC ck7 etc. if present ordered. 20:47 Chest, 2 View (pa\E\lat) Ordered. EDMS 20:47 -Influenza A&B Rapid Antigen - Nose Ordered. EDMS 20:47 CBC with Diff Ordered. EDMS 20:47 MED Profile Ordered. EDMS 20:47 -Blood Culture Ordered. EDMS 20:48 -Blood Culture (Adults Only), peripheral from different site, or from device/port/PICC ml3 etc. if present complete. 20:50 BLOOD CULTURES Ordered. EDMS 21:04 Financial registration complete. gjb 21:06 [facility] Payment Agreement was scanned into [employer] and attached to record. gjb 21:50 CBC with Diff Reviewed. ck7 21:50 MED Profile Reviewed. ck7 21:50 -Influenza A&B Rapid Antigen - Nose Reviewed. ck7 21:56 Recheck Vital Signs, perform reassessment and enter into [employer]In[employer]Box ordered. ck7 21:56 azithromycin 500 mg PO once ordered. ck7 08/26 12:58 T-Sheet-- Draft Copy was scanned into [employer] and attached to record. gb Administered Medications: 08/25 20:44 Drug: Ibuprofen 600 mg [ibuprofen 600 mg tablet (1 tabs)] Route: PO; ttb 20:44 Drug: Acetaminophen 975 mg [acetaminophen 325 mg tablet (3 tabs)] Route: PO; ttb 22:03 Drug: azithromycin 500 mg [azithromycin 250 mg tablet (2 tabs)] Route: PO; ttb Signatures: Dispatcher [employer] EDNC Cat Mcclellan, Reg Reg gb Cas Boggs RN RN mlb1 Ana Lilia Wilde, Registered Appraiser Unit ml3 Gustavo Ward RPA-C RPA-Cck7 Chantell Finley RN RN ttb Palmira Briseno The chart was reviewed and I authenticate all verbal orders and agree with the evaluation and treatment provided.Attachments: 21:06 [facility] Payment Agreement banner 08/26 12:58 T-Sheet-- Draft Copy gb Chart Complete MTDD
--- NOTE | 2016-08-29 12:40 | EDDOCDS ---
Physician Documentation [facility] Name: Beverly Roque Age: 26 yrs Sex: Female : 1990 Arrival Date: 08/25/2016 Time: 18:16 Bed PR Private MD: Efren Strange W Disposition: 08/25/16 22:42 Discharged to Home/Self Care. Impression: Pneumonia, unspecified organism. - Condition is Stable. - Discharge Instructions: Pneumonia, Adult. - Prescriptions for Zithromax 250 mg Oral Tablet - take 1 tablet by ORAL route once daily start tomorrow; 4 tablet. benzonatate 200 mg Oral Capsule - take 1 capsule by ORAL route 3 times per day As needed; 30 capsule. - Medication Reconciliation, Work Release Form - 3 day, Local Pharmacy Hours form. - Follow up: Efren Strange; When: 1 - 2 days; Reason: Recheck today's complaints, Continuance of care. - Problem is new. - Symptoms have improved. Historical: - Allergies: no known allergies; - Home Meds: 1. none - PMHx: none; - PSHx: none; - Social history: Smoking status: Patient uses tobacco products, light tobacco smoker. No barriers to communication noted, The patient speaks fluent Georgian, Speaks appropriately for age. - Family history: Not pertinent. - : The pt / caregiver states he / she is not on anticoagulants. Home medication list is obtained from the patient. - Exposure Risk Screening:: None identified. 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 6 in. (167.64 cm); Pain 8/10; 22:04 BP 101 / 56; Pulse 100; Resp 18; Temp 101.5; Pulse Ox 96% on R/A; Pain 2/10; ttb 22:19 Temp 100.2(O); mdr 18:17 Body Mass Index 24.21 (68.04 kg, 167.64 cm) elp 22:04 pt wearing 2 jackets. ttb MDM: 20:40 Ibuprofen 600 mg PO once ordered. ck7 20:40 Acetaminophen Tablet 975 mg PO once ordered. ck7 20:46 Obtain sample by nasopharyngeal swab ordered. ck7 20:46 -Blood Culture (Adults Only), peripheral from different site, or from device/port/PICC ck7 etc. if present ordered. 20:47 Chest, 2 View (pa\E\lat) Ordered. EDMS 20:47 -Influenza A&B Rapid Antigen - Nose Ordered. EDMS 20:47 CBC with Diff Ordered. EDMS 20:47 MED Profile Ordered. EDMS 20:47 -Blood Culture Ordered. EDMS 20:48 -Blood Culture (Adults Only), peripheral from different site, or from device/port/PICC ml3 etc. if present complete. 20:50 BLOOD CULTURES Ordered. EDMS 21:04 Financial registration complete. gjb 21:06 [facility] Payment Agreement was scanned into [employer] and attached to record. gjb 21:50 CBC with Diff Reviewed. ck7 21:50 MED Profile Reviewed. ck7 21:50 -Influenza A&B Rapid Antigen - Nose Reviewed. ck7 21:56 Recheck Vital Signs, perform reassessment and enter into MedHoViepage ordered. ck7 21:56 azithromycin 500 mg PO once ordered. ck7 08/26 12:58 T-Sheet-- Draft Copy was scanned into [employer] and attached to record. gb Administered Medications: 08/25 20:44 Drug: Ibuprofen 600 mg [ibuprofen 600 mg tablet (1 tabs)] Route: PO; ttb 20:44 Drug: Acetaminophen 975 mg [acetaminophen 325 mg tablet (3 tabs)] Route: PO; ttb 22:03 Drug: azithromycin 500 mg [azithromycin 250 mg tablet (2 tabs)] Route: PO; ttb Signatures: Dispatcher [employer] EDCT Cat Mcclellan, Reg Reg gb Cas Boggs RN RN mlb1 Ana Lilia Wilde, Waiver Analyst Unit ml3 Gustavo Ward RPA-C RPA-Cck7 Chantell Finley RN RN ttb Palmira Briseno The chart was reviewed and I authenticate all verbal orders and agree with the evaluation and treatment provided.Attachments: 21:06 [facility] Payment Agreement [facility] 08/26 12:58 T-Sheet-- Draft Copy gb Chart Complete MTDD
--- NOTE | 2016-08-29 12:40 | EDDOCDS ---
Nurse's Notes [facility] Name: Beverly Roque Age: 26 yrs Sex: Female : 1990 Arrival Date: 08/25/2016 Time: 18:16 Bed PR Private MD: Efren Strange W Diagnosis: Pneumonia, unspecified organism Presentation: 08/25 18:22 Presenting complaint: Patient states: Chest pain with inspiration, cough and headache mlb1 began 10 days ago. Adult Sepsis Screening: The patient does not have new or worsening altered mentation. Patient's respiratory rate is less than 22. Systolic blood pressure is greater than 100. Patient has a qSOFA score of 0- Negative Sepsis Screen. Suicide/Homicide risk assessment- the patient denies having any suicidal and/or homicidal ideations and does not present with any other emotional, behavioral or mental health complaints. Status: Patient is not a office services specialist or dependent. Transition of care: patient was not received from another setting of care. 18:22 Acuity: JOSE Level 4 mlb1 18:22 Method Of Arrival: Walkin/Carried/Asstd mlb1 Triage Assessment: 18:24 General: Appears in no apparent distress, Behavior is appropriate for age, cooperative. mlb1 Pain: Location: chest Pain currently is 4 out of 10 on a pain scale. HIV screening NA for this visit Offered previously. Respiratory: Reports cough that is productive. 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 none - PMHx: none; - PSHx: none; - Social history: Smoking status: Patient uses tobacco products, light tobacco smoker. No barriers to communication noted, The patient speaks fluent Taiwanese, Speaks appropriately for age. - Family history: Not pertinent. - : The pt / caregiver states he / she is not on anticoagulants. Home medication list is obtained from the patient. - Exposure Risk Screening:: None identified. Screenin:44 Screening information is obtained from the patient. Fall risk: No risks identified. ttb Assistance ADL's: requires no assistance with activities of daily living. Abuse/DV Screen: The patient / caregiver reports he/she is: not in a situation that causes fear, pain or injury. Nutritional screening: No deficits noted. Advance Directives: Currently, there is no health care proxy. home support is adequate. Assessment: 20:44 General: Appears in no apparent distress, uncomfortable, well nourished, well groomed, ttb Behavior is appropriate for age, cooperative, flat, pleasant. Neurological: Level of Consciousness is awake, alert. Cardiovascular: Chest pain is denied. Respiratory: Airway is patent Respiratory effort is even, unlabored, Respiratory pattern is regular, symmetrical, Reports cough that is non-productive, Denies labored breathing. GI: Denies nausea, vomiting. Derm: Skin is normal. Injury Description: No known injury. 21:06 General: bloods drawn and meds given per orders. Pt awaiting xray. ttb 22:03 Reassessment: Patient appears in no apparent distress at this time. Patient states ttb feeling better. Patient states symptoms have improved. pain improved after meds given. Temp remains increased. PA aware.. 22:52 Reassessment: Patient appears in no apparent distress at this time. Patient states ttb feeling better. Patient states symptoms have improved. pt states she is comfortable going home. . Neurological: Level of Consciousness is awake, alert. Respiratory: Airway is patent Respiratory effort is even, unlabored, Respiratory pattern is regular, symmetrical. 22:54 General: medicaid cab requested and confirmed. . ttb Vital Signs: 18:17 BP 115 / 62; Pulse 103; Resp 18; Temp 101.0; Pulse Ox 98% on R/A; Weight 68.04 kg; elp Height 5 ft. 6 in. (167.64 cm); Pain 8/10; 22:04 BP 101 / 56; Pulse 100; Resp 18; Temp 101.5; Pulse Ox 96% on R/A; Pain 2/10; ttb 22:19 Temp 100.2(O); mdr 18:17 Body Mass Index 24.21 (68.04 kg, 167.64 cm) elp 22:04 pt wearing 2 jackets. ttb Vitals: 18:17 Log In Time: August 25, 2016 at 18:15. el ED Course: 18:17 Patient visited by Marissa Almaguer PCA. elp 18:17 Efren Strange is Private Physician. elp 18:17 Patient moved to Waiting elp 18:18 Patient visited by Marissa Almaguer PCA. elp 18:18 Patient moved to Pre RCE elp 18:22 Patient visited by Cas Boggs, RN. mlb1 18:24 Triage Initiated mlb1 18:25 Patient visited by Cas Boggs, RADHA. mlb1 20:00 Patient moved to Triage 1 ttb 20:39 Gustavo Ward RPA-C is PHCP. ck7 20:39 Patric Barnett MD is Attending Physician. ck7 20:39 Patient visited by Gustavo Ward RPA-C. ck7 20:44 The patient / caregiver is instructed regarding the plan of care and ED course. Patient ttb has correct armband on for positive identification. 20:45 Patient visited by Chantell Finley RN. ttb 21:06 [facility] Payment Agreement was scanned into [employer] and attached to record. gjb 21:07 Patient moved to PR1 / 25 ttb 21:24 Patient moved to Radiology sai 21:28 BLOOD CULTURES Sent. mdr 21:32 Patient moved to PR1 / 25 sai 21:47 Patient visited by Gustavo Ward RPA-C. ck7 22:19 Patient visited by Renny Murphy PCA. mdr 22:42 Efren Strange is Referral Physician. ck7 22:52 No IV's were initiated during this patient's visit. No procedures done that require ttb assistance. Labs drawn. (by ED staff). Labs/Blood culture drawn. 08/26 00:18 Chest, 2 View (pa\E\lat) Returned. EDMS 12:58 T-Sheet-- Draft Copy was scanned into [employer] and attached to record. gb Administered Medications: 08/25 20:44 Drug: Ibuprofen 600 mg [ibuprofen 600 mg tablet (1 tabs)] Route: PO; ttb 20:44 Drug: Acetaminophen 975 mg [acetaminophen 325 mg tablet (3 tabs)] Route: PO; ttb 22:03 Drug: azithromycin 500 mg [azithromycin 250 mg tablet (2 tabs)] Route: PO; ttb Order Results: Lab Order: -Influenza A&B Rapid Antigen - Nose; SPEC'M 08/25/16 20:55 Test: INFLUENZA A RAPID SCR by ICA; Value: INFLUENZA A RESULTS NEGATIVE; Status: F Test: INFLUENZA A RAPID SCR by ICA; Value: Comments:; Status: F Test: INFLUENZA B RAPID SCR by ICA; Value: INFLUENZA B RESULTS NEGATIVE; Status: F Test Note: ; The Influenza test is a direct rapid immunoassay for the qualitative detection of Influenza viral antigen. Cell culture (Viral Culture) testing should be considered to confirm NEGATIVE results and to assist in detecting other viruses that can provide similar clinical symptoms. Please contact the lab within 24 hours ([phone]) if confirmatory testing is desired. Lab Order: CBC with Diff; SPEC'M 08/25/16 20:55 Test: WHITE BLOOD COUNT; Value: 13.8; Range: 4.0-10.0; Abnormal: Above high normal; Units: K/mm3; Status: F Test: RED BLOOD COUNT; Value: 5.03; Range: 4.00-5.40; Units: M/mm3; Status: F Test: HEMOGLOBIN; Value: 14.2; Range: 12.0-16.0; Units: g/dl; Status: F Test: HEMATOCRIT; Value: 41.9; Range: 36.0-47.0; Units: %; Status: F Test: MEAN CORPUSCULAR VOLUME; Value: 83.2; Range: 80.0-96.0; Units: fl; Status: F Test: MEAN CORPUSCULAR HEMOGLOBIN; Value: 28.2; Range: 27.0-33.0; Units: pg; Status: F Test: MEAN CORPUSCULAR HGB CONC; Value: 33.9; Range: 32.0-36.5; Units: g/dl; Status: F Test: RED CELL DISTRIBUTION WIDTH; Value: 12.4; Range: 11.5-14.5; Units: %; Status: F Test: PLATELET COUNT, AUTOMATED; Value: 214; Range: 150-450; Units: k/mm3; Status: F Test: NEUTROPHILS %; Value: 82.4; Range: 36.0-66.0; Abnormal: Above high normal; Units: %; Status: F Test: LYMPH %; Value: 9.5; Range: 24.0-44.0; Abnormal: Below low normal; Units: %; Status: F Test: MONO %; Value: 4.8; Range: 0.0-5.0; Units: %; Status: F Test: EOS %; Value: 1.0; Range: 0.0-3.0; Units: %; Status: F Test: BASO %; Value: 0.9; Range: 0.0-1.0; Units: %; Status: F Test: LARGE UNSTAINED CELL %; Value: 1.4; Range: 0.0-4.0; Units: %; Status: F Test: NEUTROPHILS #; Value: 11.3; Range: 1.8-7.7; Abnormal: Above high normal; Units: K/mm3; Status: F Test: LYMPH #; Value: 1.5; Range: 1.5-6.5; Units: K/mm3; Status: F Test: MONO #; Value: 0.7; Range: 0.0-0.8; Units: K/mm3; Status: F Test: EOS #; Value: 0.1; Range: 0.0-0.50; Units: K/mm3; Status: F Test: BASO #; Value: 0.1; Range: 0.0-0.2; Units: K/mm3; Status: F Test: LARGE UNSTAINED CELL #; Value: 0.2; Range: 0.0-0.4; Units: K/mm3; Status: F Lab Order: MED Profile; SPEC'M 08/25/16 20:55 Test: GLUCOSE, FASTING; Value: 91; Range: 70-105; Units: MG/DL; Status: F Test: BLOOD UREA NITROGEN; Value: 13; Range: 7-18; Units: MG/DL; Status: F Test: CREATININE FOR GFR; Value: 0.93; Range: 0.55-1.02; Units: MG/DL; Status: F Test: GLOMERULAR FILTRATION RATE; Value: > 60.0; Range: >60; Status: F Test: SODIUM LEVEL; Value: 139; Range: 136-145; Units: MEQ/L; Status: F Test: POTASSIUM SERUM; Value: 3.4; Range: 3.5-5.1; Abnormal: Below low normal; Units: MEQ/L; Status: F Test: CHLORIDE LEVEL; Value: 105; Range: 98-107; Units: MEQ/L; Status: F Test: CARBON DIOXIDE LEVEL; Value: 24; Range: 21-32; Units: MEQ/L; Status: F Test: ANION GAP; Value: 10; Range: 8-16; Units: MEQ/L; Status: F Test: CALCIUM LEVEL; Value: 9.0; Range: 8.5-10.1; Units: MG/DL; Status: F Test Note: ; Units are mL/min/1.73 m2 Chronic Kidney Disease Staging per NKF: Stage I & II GFR >=60 Normal to Mildly Decreased Stage III GFR 30-59 Moderately Decreased Stage IV GFR 15-29 Severely Decreased Stage V GFR <15 Very Little GFR Left ESRD GFR <15 on ZONING ADMINISTRATOR Lab Order: -Blood Culture; SPEC'M 08/25/16 20:55 Test: BLOOD CULTURE; Value: DATE POSITIVE DETECTED 08/27/16; Status: F Test: BLOOD CULTURE; Value: EXTERNAL GS (REQUIRED!!!) GRAM POSITIVE COCCI IN CLUSTERS; Status: F Test: BLOOD CULTURE; Value: ORGANISM 1: STAPHYLOCOCCUS HOMINIS SSP MADHAV; Status: F Test: BLOOD CULTURE; Value: STAPHYLOCOCCUS HOMINIS SSP MADHAV; Status: F Test: BLOOD CULTURE; Value: GRAM POS SENSI - VITEK 67; Status: F Test: BLOOD CULTURE; Value: Method: VIT2; Status: F Test: BLOOD CULTURE; Value: TETRACYCLINE <=1 S; Status: F Test: BLOOD CULTURE; Value: PENICILLIN G <=0.03 R; Status: F Test: BLOOD CULTURE; Value: TRIMETHOPRIM/SULFAMETHOXAZOLE <=10 S; Status: F Test: BLOOD CULTURE; Value: ERYTHROMYCIN <=0.25 S; Status: F Test: BLOOD CULTURE; Value: GENTAMICIN <=0.5 S; Status: F Test: BLOOD CULTURE; Value: CLINDAMYCIN <=0.25 S; Status: F Test: BLOOD CULTURE; Value: OXACILLIN <=0.25 S; Status: F Test: BLOOD CULTURE; Value: VANCOMYCIN <=0.5 S; Status: F Test: BLOOD CULTURE; Value: LINEZOLID (ZYVOX) 2 S; Status: F Lab Order: BLOOD CULTURES; SPEC'M 08/25/16 21:26 Test: BLOOD CULTURE; Value: No growth after 48 hours . All specimens observed; Status: F Test: BLOOD CULTURE; Value: for 5 days. Results final at that time.; Status: F Test: BLOOD CULTURE; Status: F Test: BLOOD CULTURE; Value: No growth after 24 hours . All specimens observed; Status: F Test: BLOOD CULTURE; Value: for 5 days. Results final at that time.; Status: F Test: BLOOD CULTURE; Value: No Growth after 72 hours. All specimens observed; Status: F Test: BLOOD CULTURE; Value: for 7 days. Results final at that time.; Status: F Radiology Order: Chest, 2 View (pa\E\lat) Test: Chest, 2 View (pa\E\lat) REASON FOR EXAMINATION: Cough; Clinical: Cough.; ; Technique: PA and lateral.; ; Comparison: None.; ; Findings:; Right middle lobe and right lower lobe atelectasis/infiltrate is suggested. No; definite effusion. No pneumothorax. Mediastinum and cardiac silhouette are; normal.; ; Impression:; Right middle lobe/right lower lobe infiltrates.; ; ; Signed by; Julián Hannah MD 08/25/2016 11:40 P; Outcome: 22:42 Discharge ordered by Provider. ck7 22:52 Discharge Assessment: Patient awake, alert and oriented x 3. No cognitive and/or ttb functional deficits noted. Patient verbalized understanding of disposition instructions. Patient awake and alert. patient administered narcotics - no. The following High Risk Discharge criteria are identified: None. Discharged to home ambulatory. Condition: good Condition: stable Condition: improved. Discharge instructions given to patient, Instructed on discharge instructions, follow up and referral plans. medication usage, Demonstrated understanding of instructions, medications, Pt was receptive of discharge instructions/ teaching. Prescriptions given X 2, Work note provided to patient. No special radiology studies were completed. Property :Personal belongings accompany Pt. 22:54 Patient left the ED. ttb Signatures: Dispatcher [employer] EDMS Robert Pemberton Gloria, Reg Reg Cas Boggs, RN RN mlb1 Gustavo Ward, RPA-C RPA-Cck7 Chantell Finley RN RN ttb Marissa Almaguer, DAYCARE DIRECTOR DAYCARE DIRECTOR Renny Tong, DAYCARE DIRECTOR DAYCARE DIRECTOR Palmira Morales Corrections: (The following items were deleted from the chart) 22:36 22:36 Temp 100.2F Oral; ttb ttb Chart Complete MTDD
--- NOTE | 2016-08-29 12:40 | EDDOCDS ---
Physician Documentation [facility] Name: Beverly Roque Age: 26 yrs Sex: Female : 1990 Arrival Date: 08/25/2016 Time: 18:16 Bed PR Private MD: Efren Strange W Disposition: 08/25/16 22:42 Discharged to Home/Self Care. Impression: Pneumonia, unspecified organism. - Condition is Stable. - Discharge Instructions: Pneumonia, Adult. - Prescriptions for Zithromax 250 mg Oral Tablet - take 1 tablet by ORAL route once daily start tomorrow; 4 tablet. benzonatate 200 mg Oral Capsule - take 1 capsule by ORAL route 3 times per day As needed; 30 capsule. - Medication Reconciliation, Work Release Form - 3 day, Local Pharmacy Hours form. - Follow up: Efren Strange; When: 1 - 2 days; Reason: Recheck today's complaints, Continuance of care. - Problem is new. - Symptoms have improved. Historical: - Allergies: no known allergies; - Home Meds: 1. none - PMHx: none; - PSHx: none; - Social history: Smoking status: Patient uses tobacco products, light tobacco smoker. No barriers to communication noted, The patient speaks fluent Nepali, Speaks appropriately for age. - Family history: Not pertinent. - : The pt / caregiver states he / she is not on anticoagulants. Home medication list is obtained from the patient. - Exposure Risk Screening:: None identified. 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 6 in. (167.64 cm); Pain 8/10; 22:04 BP 101 / 56; Pulse 100; Resp 18; Temp 101.5; Pulse Ox 96% on R/A; Pain 2/10; ttb 22:19 Temp 100.2(O); mdr 18:17 Body Mass Index 24.21 (68.04 kg, 167.64 cm) elp 22:04 pt wearing 2 jackets. ttb MDM: 20:40 Ibuprofen 600 mg PO once ordered. ck7 20:40 Acetaminophen Tablet 975 mg PO once ordered. ck7 20:46 Obtain sample by nasopharyngeal swab ordered. ck7 20:46 -Blood Culture (Adults Only), peripheral from different site, or from device/port/PICC ck7 etc. if present ordered. 20:47 Chest, 2 View (pa\E\lat) Ordered. EDMS 20:47 -Influenza A&B Rapid Antigen - Nose Ordered. EDMS 20:47 CBC with Diff Ordered. EDMS 20:47 MED Profile Ordered. EDMS 20:47 -Blood Culture Ordered. EDMS 20:48 -Blood Culture (Adults Only), peripheral from different site, or from device/port/PICC ml3 etc. if present complete. 20:50 BLOOD CULTURES Ordered. EDMS 21:04 Financial registration complete. gjb 21:06 ON LICENSE OF [facility] Payment Agreement was scanned into [employer] and attached to record. gjb 21:50 CBC with Diff Reviewed. ck7 21:50 MED Profile Reviewed. ck7 21:50 -Influenza A&B Rapid Antigen - Nose Reviewed. ck7 21:56 Recheck Vital Signs, perform reassessment and enter into [employer] ordered. ck7 21:56 azithromycin 500 mg PO once ordered. ck7 08/26 12:58 T-Sheet-- Draft Copy was scanned into [employer] and attached to record. gb Administered Medications: 08/25 20:44 Drug: Ibuprofen 600 mg [ibuprofen 600 mg tablet (1 tabs)] Route: PO; ttb 20:44 Drug: Acetaminophen 975 mg [acetaminophen 325 mg tablet (3 tabs)] Route: PO; ttb 22:03 Drug: azithromycin 500 mg [azithromycin 250 mg tablet (2 tabs)] Route: PO; ttb Signatures: Dispatcher [employer] EDNE Cat Mcclellan, Reg Reg gb Cas Boggs RN RN mlb1 Ana Lilia Wilde, Continuous Drier Helper Unit ml3 Gustavo Ward RPA-C RPA-Cck7 Chantell Finley RN RN ttb Palmira Briseno The chart was reviewed and I authenticate all verbal orders and agree with the evaluation and treatment provided.Attachments: 21:06 ON LICENSE OF [facility] 08/26 12:58 T-Sheet-- Draft Copy gb Chart Complete MTDD
== END 2016-08-25 22:54 | disposition home or self-care (01) ==
LOC: M ED 18:16
DX: J18.9 Pneumonia, unspecified organism (principal); F17.210 Nicotine dependence, cigarettes, uncomplicated

== ENCOUNTER 2017-04-03 16:39 | Emergency (ER) | payer OTHER ==
[~2017-04-03] VITALS: Ht 167.6 cm; Wt 63.6 kg
[2017-04-03] MEDS ORDERED: LIDOCAINE 2% MDV 20 ML VIAL SC ONE (18:00)
[2017-04-03] MEDS ORDERED: CEPHALEXIN 500 MG CAP PO ONE (18:30)
[2017-04-03] MEDS ORDERED: ADACEL/BOOSTRIX VACCINE (DIPHTH/PERTUSS/ACELL/TETANUS)0.5ML SYR (90715) IM ONE (18:30)
[2017-04-03] MEDS ORDERED: KEFL500C17 PO (18:37)
[2017-04-03 18:58] VITALS: BP 121/63
== END 2017-04-03 19:03 | disposition home or self-care (01) ==
LOC: M ED 16:39
DX: S61.205A Unspecified open wound of left ring finger without damage to nail, initial encounter (principal); S61.204A Unspecified open wound of right ring finger without damage to nail, initial encounter; W26.8XXA Contact with other sharp object(s), not elsewhere classified, initial encounter; Y92.019 Unspecified place in single-family (private) house as the place of occurrence of the external cause; Y93.89 Activity, other specified; Y99.8 Other external cause status; F17.200 Nicotine dependence, unspecified, uncomplicated

== ENCOUNTER → 2018-05-15 | Outpatient (REF) | payer OTHER ==
[2018-05-15 19:08] LABS: HEMATOCRIT 40.2 % (36.0-47.0); HEMOGLOBIN 13.4 g/dl (12.0-15.5); MEAN CORPUSCULAR HGB CONC 33.3 g/dl (32.0-36.5); MEAN CORPUSCULAR VOLUME 83.9 fl (80.0-96.0); PLATELET COUNT, AUTOMATED 239 10^3/uL (150-450); RED BLOOD COUNT 4.79 10^6/uL (4.00-5.40); RED CELL DISTRIBUTION WIDTH 12.4 % (11.5-14.5)
[2018-05-15 21:10] LABS: HCG, SERUM QUANTITATIVE 7775 MIU/ML; HIV 1&2 SCREEN CENTAUR NEGATIVE (NEGATIVE)
[2018-05-17 09:55] LABS: RUBELLA IgG QUALITATIVE IMMUNE (IMMUNE)
[2018-05-17 09:56] LABS: HBsAg Prenatal NEGATIVE (NEGATIVE)
[2018-05-17 10:24] LABS: HEPATITIS C VIRUS ABY INDEX < 0.0 INDEX (<0.8)
== END ==
LOC: M LAB REF 16:32
DX: O36.80X0 Pregnancy with inconclusive fetal viability, not applicable or unspecified (principal); Z32.01 Encounter for pregnancy test, result positive

== ENCOUNTER → 2018-06-15 | Outpatient (REF) | payer OTHER | LOC: M LAB REF 16:54 | DX: Z34.02 Encounter for supervision of normal first pregnancy, second trimester (principal) ==

== ENCOUNTER → 2018-08-11 | Outpatient (CLI) | payer OTHER ==
[~2018-08-11] MED LIST: KEFL500C17 PO
== END ==
LOC: M LAB 11:46
PROVIDERS: ATTEND Obstetrics & Gynecology
DX: Z34.02 Encounter for supervision of normal first pregnancy, second trimester (principal)

== ENCOUNTER → 2018-08-24 | Outpatient (REF) | payer OTHER ==
[~2018-08-24] MED LIST changes: +IBUP80TA PO; +PERCOCET PO; +PRENTAB9 PO
[2018-08-24 18:20] LABS: HEMATOCRIT 32.5 % (36.0-47.0); MEAN CORPUSCULAR HEMOGLOBIN 29.4 pg (27.0-33.0); MEAN CORPUSCULAR HGB CONC 33.8 g/dl (32.0-36.5); MEAN CORPUSCULAR VOLUME 86.9 fl (80.0-96.0); PLATELET COUNT, AUTOMATED 206 10^3/uL (150-450); RED BLOOD COUNT 3.74 10^6/uL (4.00-5.40); WHITE BLOOD COUNT 12.9 10^3/uL (4.0-10.0)
== END ==
LOC: M LAB REF 16:25
PROVIDERS: ATTEND Obstetrics & Gynecology
DX: Z34.03 Encounter for supervision of normal first pregnancy, third trimester (principal)

== ENCOUNTER → 2018-09-21 | Outpatient (REF) | payer OTHER ==
[~2018-09-21] MED LIST changes: -IBUP80TA PO; -PERCOCET PO; -PRENTAB9 PO
== END ==
LOC: M LAB REF 13:45
PROVIDERS: ATTEND Obstetrics & Gynecology
DX: Z34.03 Encounter for supervision of normal first pregnancy, third trimester (principal); Z3A.35 35 weeks gestation of pregnancy

== ENCOUNTER → 2018-09-28 | Outpatient (REF) | payer OTHER ==
[~2018-09-28] MED LIST changes: +IBUP80TA PO; +PERCOCET PO; +PRENTAB9 PO
== END ==
LOC: M LAB REF 16:34
PROVIDERS: ATTEND Obstetrics & Gynecology
DX: Z34.03 Encounter for supervision of normal first pregnancy, third trimester (principal); Z3A.00 Weeks of gestation of pregnancy not specified

== ENCOUNTER 2018-10-01 11:49 | Inpatient (IN) | payer OTHER ==
[2018-10-01] VITALS (23 sets, daily range): BP systolic 69–116; BP diastolic 38–62
[~2018-10-01] VITALS: Ht 167.6 cm; Wt 105.6 kg
[~2018-10-01 11:49] MED LIST changes: -IBUP80TA PO; -PERCOCET PO; -PRENTAB9 PO
[2018-10-01] MEDS ORDERED: PRENTAB9 PO (12:25)
[2018-10-01 13:44] LABS: HEMATOCRIT 37.6 % (36.0-47.0); HEMOGLOBIN 12.5 g/dl (12.0-15.5); MEAN CORPUSCULAR HEMOGLOBIN 29.3 pg (27.0-33.0); MEAN CORPUSCULAR HGB CONC 33.2 g/dl (32.0-36.5); MEAN CORPUSCULAR VOLUME 88.1 fl (80.0-96.0); PLATELET COUNT, AUTOMATED 224 10^3/uL (150-450); RED BLOOD COUNT 4.27 10^6/uL (4.00-5.40); WHITE BLOOD COUNT 15.3 10^3/uL (4.0-10.0)
[2018-10-01] MEDS ORDERED: OXYTOCIN DRIP 30 UNITS in APPROPRIATE DILUENT 1 EA IV SCH (13:45)
[2018-10-01] MEDS: LR 1,000 ML IV SCH ×2 (14:12→23:23)
--- NOTE | 2018-10-01 19:28 | HPE ---
DATE OF ADMISSION: 10/01/2018 REASON FOR ADMISSION: premature rupture of membranes. HISTORY OF PRESENT ILLNESS: Mrs. Roque is a 28-year-old 1 that presents at 36 weeks 6 days estimated gestational age by last menstrual period confirmed by a mid trimester ultrasound here with complaints of leakage of clear fluid that occurred this morning. She reports active movement. Denies any regular pattern of contractions or vaginal bleeding. Her course has been unremarkable. She initiated care with [facility]. She has been seen with regular appointments. PAST MEDICAL HISTORY: None. PAST SURGICAL HISTORY: Oral surgery. OBSTETRICAL HISTORY: She is a 1. MEDICATIONS: Includes: - vitamins ALLERGIES: She has no known drug allergies. SOCIAL HISTORY: Denies any alcohol or drug use. Does report smoking during the . PHYSICAL EXAMINATION: Vital signs: Stable. She is afebrile. General appearance: Well appearing, no acute distress. She has a category one heart rate tracing with some irregular contractions on tocometer. Lungs: Clear to auscultation bilaterally. Cardiovascular: Heart regular rate and rhythm. Abdomen: Gravid, nontender. Estimated weight (EFW) 3200 grams. Cervical exam: She was 2 cm dilated, 75% effaced, grossly ruptured, clear. LABORATORY DATA: labs: Blood type is A+, antibody screen is negative. Rubella is immune. RPR is nonreactive. HIV is negative. Hepatitis surface antigen is nonreactive. Hepatitis C is nonreactive. Chlamydia and gonorrhea screens are negative. She had a normal 1-hour Glucola and she is GBS negative. ASSESSMENT: 1. Mrs. Roque is a 28-year-old 1, para 0 at 36 weeks 6 days estimated gestational age with premature rupture of membranes. 2. Reassuring status. PLAN: 1. Admit to labor and delivery. CBC, RPR, type and screen. 2. The patient has been counseled in regards to her diagnosis. I have discussed augmentation of labor with Pitocin. She has also been verbally consented for emergency surgery, blood products, anesthesia and desires to proceed with admission. Will augment her labor with Pitocin.
[2018-10-01] MEDS ORDERED: FENTANYL 2MCG/ML ROPIVACAINE 0.2% IN 0.9% NACL 100ML IVBAG As Ordered ONE (22:10)
[2018-10-01] MEDS ORDERED: ePHEDrine SULFATE 25 MG/5 ML(5MG/ML) SYRINGE As Ordered ONE (23:11)
[2018-10-01] MEDS ORDERED: EPIDURAL/PCA KEYS XX PRN (23:30)
[2018-10-01] MEDS ORDERED: LACTATED RINGER'S 1000 ML IV PRN (23:30)
[2018-10-01] MEDS ORDERED: EPIDURAL COMMENT XX SCH (23:30)
[2018-10-01] MEDS ORDERED: FENTANYL/ROPIVACAINE/NACL BAG 100 ML EPIDURAL SCH (23:30)
[2018-10-01] MEDS ORDERED: ONDANSETRON 4MG/2ML VIAL (J2405) IV PRN (23:30)
[2018-10-01] MEDS ORDERED: REFRIGERATOR IV KEYS XX PRN (23:30)
[2018-10-01] MEDS ORDERED: diphenhydrAMINE INJ 50MG/ML VIAL (J1200) IV PRN (23:30)
[2018-10-01] MEDS ORDERED: ePHEDrine SULFATE 25 MG/5 ML(5MG/ML) SYRINGE IV PRN (23:30)
[2018-10-01] MEDS ORDERED: NALOXONE INJ 0.4 MG/1 ML VIAL (J2310) IV PRN (23:30)
[2018-10-02] VITALS (20 sets, daily range): BP systolic 73–102; BP diastolic 43–58
[2018-10-02] MEDS ORDERED: LR 1,000 ML IV ONE (01:45)
[2018-10-02] MEDS ORDERED: ePHEDrine SULFATE 25 MG/5 ML(5MG/ML) SYRINGE IV PRN (01:45)
--- NOTE | 2018-10-02 03:05 | NUR ---
L&D Note: S: Comfortable after epidural O: vss, AF gen:well appearing cx: -1, FSE and IUPC where placed earlier A/P: 28yo G1 @ 37wks with PPROM reassuring status -will cont with pitocin augmentation Shameka Youssef MD
[2018-10-02] MEDS ORDERED: TERBUTALINE SULFATE 1 MG/ML VIAL (J3105) As Ordered ONE (03:19)
[2018-10-02] MEDS ORDERED: BICITRA 30ML SOLN UDC As Ordered ONE (03:21)
[2018-10-02] MEDS ORDERED: ceFAZolin 2 GM/D5W 50 ML IV BAG (J0690 PER 500MG) As Ordered ONE (03:21)
[2018-10-02] MEDS ORDERED: BICITRA 30ML SOLN UDC PO ONE (03:30)
[2018-10-02] MEDS ORDERED: NALOXONE INJ 0.4 MG/1 ML VIAL (J2310) IV PRN ×2 (03:40)
[2018-10-02] MEDS ORDERED: NALBUPHINE HCL 10 MG/ML AMP (J2300) IV PRN ×2 (03:40→05:45)
[2018-10-02] MEDS ORDERED: diphenhydrAMINE INJ 50MG/ML VIAL (J1200) IV PRN (03:40)
[2018-10-02] MEDS ORDERED: METOCLOPRAMIDE INJ 10MG/2ML VIAL (J2765) IV PRN (03:40)
[2018-10-02] MEDS ORDERED: ONDANSETRON 4MG/2ML VIAL (J2405) IV PRN ×3 (03:40→05:45)
[2018-10-02] MEDS ORDERED: OXYTOCIN INJ 10 UNITS/ML VIAL (J2590) As Ordered ONE ×2 (03:42→03:54)
[2018-10-02] MEDS ORDERED: CHLOROPROCAINE PRES. FREE 3% INJ 20 ML VIAL (J2400) As Ordered ONE (03:42)
[2018-10-02] MEDS ORDERED: MORPHINE PRES-FREE INJ 10 MG/10 ML VIAL (J2274) As Ordered ONE (03:43)
[2018-10-02] MEDS ORDERED: PHENYLephrine HCL 500 MCG/5 ML (100MCG/ML) SYRINGE (J2370) As Ordered ONE ×2 (03:44→03:54)
[2018-10-02 03:51] LABS: CORD GAS ABE A -13.6; CORD GAS HCO3 A 20.9 MEQ/L; CORD GAS HCO3 V 14.7 MEQ/L; CORD GAS O2 SAT A 35.1 %; CORD GAS O2 SAT V 76.4 %; CORD GAS PCO2 A 96.3 mmHg; CORD GAS PCO2 V 44.6 mmHg; CORD GAS PH V 7.137 UNITS; CORD GAS PO2 A 23.4 mmHg; CORD GAS PO2 V 41.1 mmHg; CORD GAS SBC V 13.6 MEQ/L; CORD GAS TCO2 A 23.8 MEQ/L; CORD GAS TCO2 V 16.1 MEQ/L
[2018-10-02 03:52] LABS: CORD GAS PH A 6.954 UNITS
[2018-10-02] MEDS ORDERED: ONDANSETRON 4MG/2ML VIAL (J2405) As Ordered ONE (04:02)
[2018-10-02] MEDS ORDERED: KETOROLAC 60 MG/2 ML VIAL (J1885) As Ordered ONE (04:02)
[2018-10-02] MEDS ORDERED: OXYTOCIN DRIP 30 UNITS in APPROPRIATE DILUENT 1 EA IV SCH (04:22)
[2018-10-02] MEDS ORDERED: LR 1,000 ML IV SCH (04:22)
[2018-10-02] MEDS ORDERED: PERCOCET 5MG/325MG TAB PO PRN ×3 (04:30→05:45)
[2018-10-02] MEDS ORDERED: MEASLES,MUMPS,RUBELLA VACCINE INJ (MMR-II) (90707) SC SCH (04:30)
[2018-10-02] MEDS ORDERED: MOM 30ML SUSPENSION UDC PO PRN (04:30)
[2018-10-02] MEDS ORDERED: RHOGAM 300 MCG (1500 IU) INJ (J2790) IM SCH (04:30)
[2018-10-02] MEDS ORDERED: OXYTOCIN 30 UNITS IN 0.9% NaCl 500ML IV BAG (J2590) As Ordered ONE (04:36)
[2018-10-02] MEDS ORDERED: MEPERIDINE INJ 25 MG/ML VIAL (J2175) IV PRN (05:45)
[2018-10-02] MEDS ORDERED: fentaNYL 100 MCG/2 ML INJECTION (J3010) IV PRN (05:45)
[2018-10-02] MEDS ORDERED: HYDROMORPHONE HCL 0.5 MG/ 0.5 ML SYRINGE (J1170 PER 1) IV PRN (05:45)
[2018-10-02] MEDS: AMPICILLIN SOD/SULBACTAM SOD 3 GM in D5W MINI-BAG PLUS 100 ML IV SCH ×4 (06:30→23:53)
--- NOTE | 2018-10-02 08:15 | RO ---
DATE OF PROCEDURE: 10/02/2018 PREOPERATIVE DIAGNOSES: 1. Non-reassuring heart tracing. 2. premature rupture of membranes. POSTOPERATIVE DIAGNOSES. 1. Non-reassuring rate tracing. 2. premature rupture of membranes. PROCEDURE PERFORMED: Primary low transverse section. SURGEON: Shameka Youssef MD INSURANCE PROCESSING CLERK: None. ANESTHESIA: Epidural. ESTIMATED BLOOD LOSS: 500 mL. IV FLUIDS: 1500 mL of lactated Ringer's solution. URINE OUTPUT: Was 150 mL. PREOPERATIVE ANTIBIOTICS: 2 grams of Ancef. SPECIMENS: Cord gases. OPERATIVE FINDINGS: Live born female infant, scores 7 and 8, weight was 6 pounds. Cord gases 6.95, 7.13 with base excesses -13.6 and -14. INDICATIONS FOR OPERATION: Ms. Roque is a 28-year-old who initially presented on October 01, 2018 with premature rupture of membranes. Her labor was augmented with Pitocin and her labor progressed. She had several hours category I heart tracing and was progressing without any events. Approximately 308 I was called to the patients room for evaluation for recurrent variable decelerations. Upon my arrival in assessing the patient had she was having repetitive severe variables with heart rate jamaal and with a heart rate of 50s. Conservative measures were deployed to include position change, fluid bolus as well as discontinuing Pitocin use. She was examined and was noted to be at 8 cm dilation and completely effaced at zero station. I was unable to resuscitate the baby with these conservative measures and she consented for section for non-reassuring heart tracing. We then urgently prepared her for section. DESCRIPTION OF OPERATION: After informed consent was obtained and written consent was reviewed, the patient was brought to the operating room was placed in the supine position with left lateral tilt. She previously had a Patiño catheter which was placed and set to gravity. She was then rapidly and draped. A time-out in the operating room was then performed identifying the patient, procedure to be performed as well as drug allergies. Anesthesia was testing and deemed to be adequate. A Pfannenstiel skin incision was then made and this was carried down to the rectus fascia. The fascia was scored in this incision was extended. The rectus muscles were then in the midline. The peritoneum was then entered. Te bladder blade was then placed to retract back the bladder. Curvilinear incision was then made in the lower uterine segment. This incision was extended, head was brought to the level of the incision atraumatically and was delivered along with shoulders and corpus. Cord was clamped times two and was cut and was taken over to the warmer where Dr. Christiansen, the retail pricing coordinator, awaited. Cord gases were obtained. Placenta was then drained and delivered grossly intact. The uterus was then cleared of all clots and debris. The uterus incision was then closed in two layers using #0 Vicryl first in a running locking fashion followed by a second layer for imbrication in a running nonlocking fashion. The abdomen was then suctioned. The uterus was returned to the patient's abdomen was reinspected and noted to be hemostatic. The anterior peritoneum was then re-approximated with #3-0 Vicryl. The rectus muscles were re-approximated #3-0 Vicryl. Fascia was then closed #0 Vicryl in a running nonlocking fashion. Subcutaneous tissue was then irrigated and suctioned. Subcutaneous tissue was re-approximated with #3-0 Vicryl. Several subdermal stitches were placed with #3-0 Vicryl and skin was closed with #4-0 Monocryl in subcuticular fashion. Incision was then cleaned and dried and was dressed. The patient was then taken to recovery in stable condition. NEELAM
[2018-10-02] MEDS: PRENATAL VITAMINS CHEWABLE TABLET PO SCH (09:28)
[2018-10-02] MEDS: DOCUSATE SODIUM 100 MG CAP PO SCH ×2 (09:28→21:00)
[2018-10-02] MEDS: KETOROLAC 30 MG/ML VIAL (J1885) IV SCH ×3 (09:29→21:43)
[2018-10-03 02:08] VITALS: BP 100/52
[2018-10-03] MEDS ORDERED: IBUPROFEN 800 MG TAB PO SCH (06:00)
[2018-10-03 06:12] VITALS: BP 99/62
[2018-10-03 07:09] LABS: HEMATOCRIT 31.2 % (36.0-47.0); MEAN CORPUSCULAR HEMOGLOBIN 29.5 pg (27.0-33.0); MEAN CORPUSCULAR HGB CONC 33.3 g/dl (32.0-36.5); MEAN CORPUSCULAR VOLUME 88.6 fl (80.0-96.0); PLATELET COUNT, AUTOMATED 213 10^3/uL (150-450); RED BLOOD COUNT 3.52 10^6/uL (4.00-5.40); WHITE BLOOD COUNT 13.8 10^3/uL (4.0-10.0)
[2018-10-03 07:16] LABS: HEMOGLOBIN 10.4 g/dl (12.0-15.5)
[2018-10-03] MEDS ORDERED: IBUP80TA PO (07:53)
[2018-10-03] MEDS ORDERED: PERCOCET PO (07:53)
[2018-10-03] MEDS: PRENATAL VITAMINS CHEWABLE TABLET PO SCH (08:25)
[2018-10-03] MEDS: DOCUSATE SODIUM 100 MG CAP PO SCH (08:25)
== END 2018-10-03 09:40 | disposition home or self-care (01) | DRG 540 ==
LOC: M LDO 11:49 → M LDI 13:05 → M OBS 10-02 06:16
PROVIDERS: ADMIT Obstetrics & Gynecology; ATTEND Obstetrics & Gynecology
PROC: 10D00Z1 Extraction of Products of Conception, Low, Open Approach (ICD-10-PCS; principal; 2018-10-02 03:33)
DX: O42.013 Preterm premature rupture of membranes, onset of labor within 24 hours of rupture, third trimester (principal); O76 Abnormality in fetal heart rate and rhythm complicating labor and delivery; Z37.0 Single live birth; Z3A.36 36 weeks gestation of pregnancy

== ENCOUNTER → 2019-01-05 | Outpatient (REF) | payer OTHER, MEDICAID ==
[~2019-01-05] MED LIST changes: +IBUP80TA PO; +PERCOCET PO; +PRENTAB9 PO
[2019-01-05 18:23] LABS: ALBUMIN 3.8 GM/DL (3.2-5.2); ALT/SGPT 21 U/L (12-78); BILIRUBIN,TOTAL 0.3 MG/DL (0.2-1.0); BLOOD UREA NITROGEN 7 MG/DL (7-18); CALCIUM LEVEL 8.4 MG/DL (8.5-10.1); CARBON DIOXIDE LEVEL 25 MEQ/L (21-32); CHLORIDE LEVEL 112 MEQ/L (98-107); CHOLESTEROL LEVEL 177 MG/DL (<200); CHOLESTEROL RISK RATIO 3.218 (<5); CREATININE FOR GFR 0.88 MG/DL (0.55-1.30); GLOMERULAR FILTRATION RATE > 60.0 (>60); GLUCOSE, FASTING 88 MG/DL (70-100); HDL CHOLESTEROL 55 MG/DL (>40); LDL CHOLESTEROL 112 MG/DL (<100); NON-HDL-C 122 MG/DL; POTASSIUM SERUM 4.6 MEQ/L (3.5-5.1); SODIUM LEVEL 142 MEQ/L (136-145); THYROID STIMULATING HORMONE 0.808 uIU/ML (0.358-3.740); TOTAL 25(OH) VITAMIN D 12.4 NG/ML (30.0-100.0); TOTAL PROTEIN 7.3 GM/DL (6.4-8.2); TRIGLYCERIDES LEVEL 49 MG/DL (<150)
[2019-01-05 18:34] LABS: RUBELLA IgG QUALITATIVE IMMUNE (IMMUNE)
[2019-01-05 18:40] LABS: BASO # 0.1 10^3/uL (0.0-0.2); BASO % 0.9 % (0.0-1.0); EOS # 0.1 10^3/uL (0.0-0.50); EOS % 1.3 % (0.0-3.0); HEMATOCRIT 45.1 % (36.0-47.0); HEMOGLOBIN 14.2 g/dl (12.0-15.5); LYMPH # 1.4 10^3/uL (1.5-6.5); LYMPH % 13.6 % (24.0-44.0); MEAN CORPUSCULAR HEMOGLOBIN 26.9 pg (27.0-33.0); MEAN CORPUSCULAR HGB CONC 31.5 g/dl (32.0-36.5); MEAN CORPUSCULAR VOLUME 85.6 fl (80.0-96.0); MONO # 0.5 10^3/uL (0.0-0.8); MONO % 5.2 % (0.0-5.0); NEUTROPHILS # 7.8 10^3/uL (1.8-7.7); NEUTROPHILS % 78.6 % (36.0-66.0); PLATELET COUNT, AUTOMATED 278 10^3/uL (150-450); RED BLOOD COUNT 5.27 10^6/uL (4.00-5.40); WHITE BLOOD COUNT 9.9 10^3/uL (4.0-10.0)
[2019-01-05 19:09] LABS: HEMOGLOBIN A1c 5.3 %
== END ==
LOC: M LAB REF 17:07
PROVIDERS: ATTEND Nurse Practitioner Family
DX: Z13.9 Encounter for screening, unspecified (principal)

== ENCOUNTER → 2023-10-06 | Outpatient (REF) | LOC: M EMP 12:52 | PROVIDERS: ATTEND Family Medicine | DX: Z01.89 Encounter for other specified special examinations (principal) ==

== ENCOUNTER → 2024-01-20 | Outpatient (REF) | LOC: M EMP 12:39 | PROVIDERS: ATTEND Family Medicine | DX: Z20.822 Contact with and (suspected) exposure to COVID-19 (principal) ==

== ENCOUNTER → 2024-05-03 | Outpatient (REF) | LOC: M EMP 12:37 | PROVIDERS: ATTEND Family Medicine | DX: Z11.52 Encounter for screening for COVID-19 (principal) ==